=== PATIENT | male | born 1960 | race Two or more races ===

== ENCOUNTER 2018-11-02 07:01 | Inpatient (IN) | payer OTHER, MEDICAID ==
--- NOTE | 2018-11-02 07:08 | EDPHY ---
H & P Time Seen by Provider: 11/02/18 07:01 Constitutional: Initial Vital Signs Heart Rate 54 L 11/02/18 07:09 Respiratory Rate 16 11/02/18 07:09 Blood Pressure 188/95 H 11/02/18 07:09 O2 Sat (%) 98 11/02/18 07:09 O2 Delivery Mode Room Air Allergies/Adverse Reactions: No Known Allergies Allergy (Verified 11/02/18 07:52) Home Medications: Medication Instructions Recorded Acetaminophen [Tylenol 325mg (*)] 650 mg PO Q4H PRN 11/02/18 Aspirin [Aspirin 81mg (*)] 81 mg PO DAILY 11/02/18 Atorvastatin Calcium [Lipitor 40 40 mg PO DAILY 11/02/18 mg (*)] Famotidine [Pepcid 20 MG (*)] 20 mg PO DAILY 11/02/18 Herbals/Supplements -Info Only 1 ea PO DAILY 11/02/18 Insulin Detemir [Levemir] 10 unit SQ HS 11/02/18 Insulin Lispro [HumaLOG LISPRO] 4 unit SC TIDMEAL 11/02/18 Labetalol HCl [Trandate 100 mg (*)] 100 mg PO TID 11/02/18 Levothyroxine [Synthroid 137 mcg 137 mcg PO DAILY06 11/02/18 (*)] Lisinopril [Zestril 40 mg (*)] 40 mg PO DAILY 11/02/18 Metoclopramide [Reglan 5 mg (*)] 5 mg PO BID 11/02/18 Multivitamins [Multivitamin (*)] 1 each PO DAILY 11/02/18 Ondansetron HCl [Zofran] 4 mg PO Q6H PRN 11/02/18 Sennosides [Senna Lax] 8.6 mg PO DAILY PRN 11/02/18 Sertraline HCl [Zoloft 25mg (*)] 25 mg PO DAILY 11/02/18 Sevelamer Carbonate [Renvela] 0.8 gm PO TIDMEAL 11/02/18 hydrALAZINE [Apresoline] 25 mg PO BID 11/02/18 Medical Decision Making - Diagnostics Imaging: Discussed imaging studies w/ freight caller Radiologist, I viewed and interpreted images myself ED Course/Re-evaluation: CHIEF COMPLAINT: Hypoglycemia, AMS, muscle rigidity HISTORY OF PRESENT ILLNESS: This is a 58 y/o male with end-stage renal disease and history of recent finger amputations who arrives via EMS from [facility] for evaluation of hypoglycemia and decreased mental status. Per EMS, last night staff found him curled up on the ground, clamped down, cool, and diaphoretic with a BGL around 50-60. Staff reported he is normally hyperglycemic around 300 and A&Ox2-3, but since starting antibiotics for his recent left finger amputations his sugars have been brittle. This morning staff administered glucagon and milkshakes to treat his BGL and EMS measured it at 116 upon their arrival. EMS describes muscle rigidity in his arms and hands en route. No history obtainable from patient. REVIEW OF SYSTEMS: Unobtainable PHYSICAL EXAM: HR, BP, O2 Sat, RR. Temp noted General Appearance: Alert, not oriented, cachectic. Head: Atraumatic without scalp tenderness or obvious injury Eyes: Pupils equal, round, reactive to light and accommodation, EOMI, no trauma , no injection. Nose: Atraumatic, no rhinorrhea, clear. Throat: Mucus membranes moist. Neck: Supple, non-tender, no lymphadenopathy. Respiratory: No retractions, no distress, no wheezes, and no accessory muscle use. Lungs are clear to auscultation bilaterally. Cardiovascular: Regular rate and rhythm, no murmurs, rubs, or gallops. Good capillary refill all extremities. Gastrointestinal: Abdomen is soft, non-tender, non-distended, no masses, no rebound, no guarding, no peritoneal signs. Musculoskeletal: Atraumatic. Neurological: Alert, not oriented or interactive. Movement in all extremities. Rigidity in wrists. Skin: No rashes, good turgor, no nodules on palpation. PAST MEDICAL HISTORY: End-stage renal disease PAST SURGICAL HISTORY: Finger amputations SOCIAL HISTORY: Lives at [facility]. Disabled. DIFFERENTIAL DIAGNOSIS: The differential diagnosis for the patient's altered mental status included but was not limited to hypoglycemia, infectious process, electrolyte abnormality, head injury, neurologic process, anemia, cardiac process, and intoxicants. MEDICAL DECISION MAKING: This is a 58 y/o male with a history of end-stage renal disease who presents with altered mentation and mehhm-ruha-xfuyrt blood sugar per staff report to EMS. EMS BGL was 116 and he has been stable for them. He is unable to answer any questions and [facility] staff reports this is worse than his baseline. Plan for IV, labs, and admission. Spoke with hospitalist. Dr. Amador accepts admission. ISTAT: BGL 116, Creatinine 6.2. 1005: Patient's temp is now 36.3C and his mental status has improved. I've reviewed all his labs and tests and no further workup is indicated in the ED. - Data Points Laboratory Results: Laboratory Results 11/02/18 07:00 11/02/18 07:00 11/02/18 11/02/18 11/02/18 07:00 07:00 07:00 WBC 9.62 10^3/uL H 10^3/uL (3.80-9.50) RBC 4.49 10^6/uL 10^6/uL (4.40-6.38) Hgb 13.4 g/dL L g/dL (13.7-17.5) Hct 41.0 % % (40.0-51.0) MCV 91.3 fL fL (81.5-99.8) MCH 29.8 pg pg (27.9-34.1) MCHC 32.7 g/dL g/dL (32.4-36.7) RDW 12.9 % % (11.5-15.2) Plt Count 223 10^3/uL 10^3/uL (150-400) MPV 9.1 fL fL (8.7-11.7) Neut % (Auto) 81.0 % H % (39.3-74.2) Lymph % (Auto) 10.5 % L % (15.0-45.0) [place]born % (Auto) 6.9 % % (4.5-13.0) Eos % (Auto) 0.9 % % (0.6-7.6) Baso % (Auto) 0.4 % % (0.3-1.7) Nucleat RBC Rel Count 0.0 % % (0.0-0.2) Absolute Neuts (auto) 7.79 10^3/uL H 10^3/uL (1.70-6.50) Absolute Lymphs (auto) 1.01 10^3/uL 10^3/uL (1.00-3.00) Absolute Monos (auto) 0.66 10^3/uL 10^3/uL (0.30-0.80) Absolute Eos (auto) 0.09 10^3/uL 10^3/uL (0.03-0.40) Absolute Basos (auto) 0.04 10^3/uL 10^3/uL (0.02-0.10) Absolute Nucleated RBC 0.00 10^3/uL 10^3/uL (0-0.01) Immature Gran % 0.3 % % (0.0-1.1) Immature Gran # 0.03 10^3/uL 10^3/uL (0.00-0.10) Sodium 139 mEq/L mEq/L (135-145) Potassium 4.9 mEq/L mEq/L (3.5-5.2) Chloride 96 mEq/L L mEq/L (97-110) Carbon Dioxide 28 mEq/l mEq/l (22-31) Anion Gap 15 mEq/L H mEq/L (6-14) BUN 46 mg/dL H mg/dL (7-23) Creatinine 6.3 mg/dL H mg/dL (0.7-1.3) Estimated GFR 9 Glucose 113 mg/dL H mg/dL (70-100) Hemoglobin A1c Pending Estim Average Glucose Pending Calcium 8.7 mg/dL mg/dL (8.5-10.4) Total Bilirubin 0.5 mg/dL mg/dL (0.1-1.4) Conjugated Bilirubin 0.5 mg/dL mg/dL (0.0-0.5) Unconjugated Bilirubin 0.0 mg/dL mg/dL (0.0-1.1) AST 25 IU/L IU/L (17-59) ALT 33 IU/L IU/L (21-72) Alkaline Phosphatase 112 IU/L IU/L (38-126) Total Protein 7.1 g/dL g/dL (6.3-8.2) Albumin 4.0 g/dL g/dL (3.5-5.0) Lipase 101 IU/L IU/L (23-300) Departure - Departure Disposition: [facility] Inpatient Acute Clinical Impression: Renal disease Altered mental status Qualifiers: Altered mental status type: unspecified Qualified Code(s): R41.82 - Altered mental status, unspecified Condition: Fair Report Scribed for: Jim Beverly Report Scribed by: Susannah Graf Date of Report: 11/02/18 Time of Report: 07:09
[2018-11-02 07:37] LABS: PLATELET COUNT 223 10^3/uL (150-400)
[2018-11-02] MEDS ORDERED: ONDANSETRON DISINTEGRATING 4 MG TAB PO PRN (07:43)
[2018-11-02] MEDS ORDERED: ACETAMINOPHEN 325 MG TAB PO PRN (07:43)
[2018-11-02] MEDS ORDERED: D50W 25 GM/50 ML SYR IVP PRN (07:45)
[2018-11-02] MEDS ORDERED: NS 1,000 ML IV SCH (08:00)
--- NOTE | 2018-11-02 08:35 | HOSPPROG ---
Hospitalist Progress Note Assessment/Plan: In-person automotive parts interpreter bedside Reviewed Meditech: note that there are several encounters under his name, so must look up for prior admissions #Acute metabolic encephalopathy on chronic encephalopathy -atrophy on CT, no acute event/ h/o subacute ischemic infarcts, likely embolic ( diagnosed 10/12) -suspect due to hypoglycemia. Query infection with hypothermia. -normotensive. Echo 10/12 with EF 62%, no VHD -Telemetry #Hypoglycemia: resolved. Holding Glargine. Cont SSI #Hypothermia: query infection. Reports diarrhea. Check GI, resp panel. UA, blood cultures pending. Amputation site healing well #Diarrhea: recently on abx, r/o C diff #ESRD: renal consulted #Left 5th finger amputation: 10/05/[address] Villeda #h/o subacute infarcts: ASA, statin, home BP meds #HTN: resume home med #Deconditioning: wheel-chair bound #DVT ppx: SQH #Disp: inpatient admission to await infectious evaluation, telemetry # Direct care time spent: 30 min bedside examining pt and reviewing Meditech (14: 00-14:30) Subjective: recent diarrhea Objective: Vital Signs Temp Pulse Resp BP Pulse Ox 33.3 C L 57 L 14 188/95 H 97 11/02/18 07:57 11/02/18 07:57 11/02/18 07:57 11/02/18 07:09 11/02/18 07:57 - Time Spent With Patient Time Spent with Patient: greater than 35 minutes Time Spent with Patient: Greater than 35 minutes spent on this patients care, greater than 50% of time spent counseling, educating, and coordinating care regarding the above mentioned plan. - Physical Exam Constitutional: no apparent distress, other (thin) Eyes: PERRL Ears, Nose, Mouth, Throat: moist mucous membranes Cardiovascular: regular rate and rhythym Respiratory: No expiratory wheeze, No inspiratory crackles Gastrointestinal: normoactive bowel sounds, soft, non-tender abdomen Genitourinary: No zhou in urethra Musculoskeletal: other (left hand 5th finger amputuation site healing. No purulence, redness. Fistula with good thrill) Neurologic: CN II-XII Intact, No facial droop Psychiatric: encephalopathic, other (alert to [place]) ICD10 Worksheet Patient Problems: Problems Problem Status Onset Altered mental status Acute Renal disease Acute
--- NOTE | 2018-11-02 08:48 | GHP ---
DATE OF ADMISSION: 11/02/2018 HISTORY OF PRESENT ILLNESS: The patient is a 58-year-old gentleman with history of diabetes, recent amputations of fingers for osteomyelitis, as well as end-stage renal disease. He was brought in from [facility] for a panoply of uncertain complaints. Apparently, his blood sugars have been uncontr olled there lately. I have reviewed his blood sugars over the last week and I have seen numbers dave een 109 and 300. He also has a depressed level of consciousness, which is apparently unusual for him . When I speak with the patient in Bel[place]ian, the patient is able to acknowledge my presence and answe r a few yes or no questions, but really has not participating. Notably, there was a rectal temperatu re of 33.3. His recent amputation sites are clean, dry, and intact, and he has apparently just finished some anti biotics. There is no discussion of diarrhea; however, the patient is not answering questions well en ough to eliminate this from potential. Reviewing his medication list, there are no obvious culprit medications that could cause obtundation. He does take a little bit of Reglan. REVIEW OF SYSTEMS: Complete 10-point review of systems conducted really not that fruitful given his current mental status., PAST MEDICAL HISTORY: Osteomyelitis; end-stage renal disease; diabetes, assume poor control; hypothy roidism, history of gastrostomy; anemia; hypertension; encephalopathy; nontraumatic intracranial hemo rrhage at some point in the past; chronic hypoxemic respiratory failure. SOCIAL HISTORY: Currently living at [facility]. No tobacco. No alcohol recently. FAMILY HISTORY: Reviewed and unremarkable. ALLERGIES: No known drug allergies. HOME MEDICATIONS: Aspirin, atorvastatin, famotidine, detemir insulin 10 h.s., levothyroxine, lisinop ril, multivitamin, Susy-Gilberto, sertraline, hydralazine, metoclopramide, labetalol, lispro, Renvela, Ty lenol. PHYSICAL EXAM: VITAL SIGNS: He is hypothermic at 33, pulse 54, breathing 16 times a minute, 98% on room air. Blood pressure elevated at 188/95. GENERAL: Chronically ill appearing in no acute distre ss, not really participating in the interview. HEENT: Oropharynx clear. Mucous membranes dry. NEC K: Supple. No lymphadenopathy or JVD. LUNGS: Clear to auscultation bilaterally. HEART: S1, S2. ABDOMEN: Soft, nontender, nondistended. Bowel sounds are hypoactive. EXTREMITIES: Lower extremit ies are without edema. He has some evidence of old also pressure ulcers on his thighs that are not a ctive and are healed. His fingers where he has had amputations on his left hand are without purulenc e, drainage, or odor, and they are healing reasonably well. I have discussed the case with Dr. Jim Beverly. LABORATORY DATA: Rkpxw-ff-bwna sodium 136, vklsn-gg-xoyc potassium 4.2, tkcwb-va-pvnt chloride 100, BUN and creatinine are 40 and 6.2, glucose 117. Hemoglobin 42. Other studies are pending at this ti me. ASSESSMENT/PLAN: 58-year-old gentleman presents with toxic metabolic encephalopathy from [facility]. 1. Encephalopathy. This remains a bit of an open book. This patient's baseline remains uncertain, as there is some debate. EMS suggesting that perhaps he is not that oriented. Will scan his head gi flip his aspirin therapy and elevated blood pressure. He is not due for dialysis. He is not uremic. We will check blood cultures, check a chest x-ray, LFTs, lipase. The patient's vitals do not suppor t a diagnosis of sepsis. It is not clear that he makes urine. If he does, we consented for urine cu ltures. 2. End-stage renal disease. I discussed with Renal. He is due for dialysis tomorrow. Can wait unt il then. 3. Recent osteomyelitis. At this point in time, I will hold off on plain films of the area. This a ppears to be relatively well healed. 4. Medications. The patient has a pretty clean list of medicines. I would probably hold metoclopra mide in him unless we discover that he has a history of gastroparesis, which he is certainly at risk for. 5. Hypothermia. We will do warm blankets, and perhaps, a Jose Hugger. 6. Volume status. The patient actually appears a bit volume deplete for me. I will give him a lite r of intravenous fluids and follow his response. 7. Prophylaxis . Subcutaneous heparin. DISPOSITION: Inpatient status. /[id number]/MODL
[2018-11-02] MEDS: INSULIN LISPRO 100 UNIT/ML SC SCH ×3 (10:35→18:10)
--- NOTE | 2018-11-02 12:28 | ASMTCMCOM ---
CM Note CM Note Notes: Pt presented to the ED via EMS for hypoglycemia, AMS, muscle rigidity and hypothermia. Pt coming from [facility] ([phone]). Pt reportedly was found on the floor next to his bed. Pt is SSO and has lived at [facility] since 01/2017. Pt admitted for AMS, encephelopathy and poorly managed BGLs. Pt has ESRD and is scheduled to receive HD tomorrow. Pt recently had left 4th and 5th fingers amputated due to osteomyelitis (08/06 & 09/09/18); surgical wounds appear well healed. Pt has extensive other PMH, see H&P. Pt recently admitted on 10/10 after coming in as a Stroke Alert; during that admission there was a Palliative Care consult ordered on 10/14 but pt d/c'd 10/15 before it was completed. Pt was readmitted on 10/17 and per PC Note 10/20/18, family did not want to discuss goals of care and pt declined PC referral at that time. Spoke w/Deborah at and she states they have had several conversations with pt and his family re:Palliative Care options but family and pt have not enrolled as of yet. Pt's brother, Jayson is MDPOA. Pt has various other supportive family members including his , Munira, and daughter, Colette. Consider another Palliative Care consult. PLAN: Anticipate pt to stabilize and return to [facility]. CM to follow. Date Signed: 11/02/2018 12:28 PM Electronically Signed By:Francesca Tabares RN
--- NOTE | 2018-11-02 12:30 | ASMTLACE ---
ZANE Acuity / Level of Answers: Yes Care: Did the patient have an inpatient admission? Comorbidities - select Answers: Cerebrovascular disease all that apply (CVA, TIA, aneurysms, vasc ular dementia) Chronic pulmonary disease Diabetes (uncontrolled or controlled) History of falls Moderate or severe liver or renal disease Peripheral vascular disease Other Notes: Chronic hypoxemic resp failure, Hx of nontraumatic intracrani al hemorrhage, ESRD (on HD), Hx of osteomyeliti s and finger amputations, hypothyroi dis m, HTN, encephalopthy, hx of gastrostomy, anemia # of Emergency department Answers: 5-8 visits in the last 6 months Score: 20 Date Signed: 11/02/2018 12:29 PM Electronically Signed By:Francesca Tabares RN
[2018-11-02] MEDS: HEPARIN 5,000 UNIT/0.5 ML INJ SC SCH ×2 (14:09→22:08)
[2018-11-02] MEDS ORDERED: SENNOSIDES 1 TAB PO PRN (15:26)
--- NOTE | 2018-11-02 15:46 | PDMN ---
Medical Necessity Medical necessity: [facility] [place] [facility] Systemic or Infectious Condition GR yo presents w/ encephalopathy unknown etiology w/ depressed LOC which is unusual for pt, suspect due to hypoglycemia, query infection w/ hypothermia. Rectal temp 33.3C on admit. Pt is hypertensive 188/95. WBC elevated. BC pending. Tele monitoring ordered. PT ordered. Admit to IP status, meets IP criteria for AMS , temp <35C. HX Pt is on hemodialysis, hx subacute ischemic infacts 10/12, hypothyroidism, HTN, encephalopathy, nontraumatic intracranial hemorrhage, chronic hypoxemic resp failure, currently living at [facility].
[2018-11-02] MEDS: LABETALOL HCL 100 MG TAB PO SCH ×2 (17:10→22:10)
[2018-11-02] MEDS: SEVELAMER HCL 800 MG TAB PO SCH (17:10)
[2018-11-02] MEDS ORDERED: INSULIN GLARGINE 100 UNITS/ML UNIT SC SCH (21:00)
[2018-11-02] MEDS: hydrALAZINE 25 MG TAB PO SCH (22:10)
[2018-11-03] MEDS: METOCLOPRAMIDE 5 MG TAB PO SCH ×3 (00:32→23:04)
[2018-11-03] MEDS: LEVOTHYROXINE 137 MCG TAB PO SCH (05:40)
[2018-11-03] MEDS: HEPARIN 5,000 UNIT/0.5 ML INJ SC SCH ×3 (05:40→23:05)
[2018-11-03] MEDS ORDERED: FAMOTIDINE 20 MG TAB PO SCH ×2 (09:00→21:00)
[2018-11-03] MEDS: ONDANSETRON 4 MG/2 ML VIAL IVP PRN ×2 (09:26→13:40)
[2018-11-03] MEDS: INSULIN LISPRO 100 UNIT/ML SC SCH ×3 (09:26→19:31)
--- NOTE | 2018-11-03 10:42 | SOAPPROG ---
SOAP Progress Note Assessment/Plan: Assessment: 1. esrd: hd today on typical mwf schedule. Vol status looks good, lytes stable. Avf looks ok. 2. AMS: b/l unclear to me but appears this may not be new issue. 3. htn: cont meds. Plan: 11/03/18 10:41 Subjective: Esrd, dialyzes mwf at [facility]. Admitted with AMS from snf, though b/l is unclear to me. Currently awake but minimally conversant, even in Polish. Denies c/o. For hd later today. Objective: Vital Signs Temp Pulse Resp BP Pulse Ox 36.9 C 73 18 184/87 H 100 11/03/18 08:00 11/03/18 08:00 11/03/18 08:00 11/03/18 08:00 11/03/18 08:00 Microbiology 11/03/18 01:49 Gastrointestinal Tract Panel (PCR) - Final Stool Clostridium Difficile Detected 11/02/18 17:00 Respiratory Panel (PCR) - Final Nasal, Sinus - Anaerobic Tube/Swab No Organism Detected By Pcr 11/02/18 11/03/18 11/04/18 05:59 05:59 05:59 Intake Total 1450 Output Total 300 Balance 1150 Physical Exam - Physical Exam General Appearance: no apparent distress, other (frail) Respiratory: lungs clear (anteriorly) Cardiac/Chest: regular rate, rhythm Abdomen: soft Extremities: swelling (no LE/dependent edema), other (+patent LUE avf) ICD10 Worksheet Patient Problems: Problems Problem Status Onset Altered mental status Acute Renal disease Acute
[2018-11-03] MEDS: SEVELAMER HCL 800 MG TAB PO SCH ×3 (11:02→18:02)
[2018-11-03] MEDS: MULTIVITAMINS 1 EACH TAB PO SCH (11:03)
[2018-11-03] MEDS: LISINOPRIL 40 MG TAB PO SCH (11:03)
[2018-11-03] MEDS: SERTRALINE HCL 25 MG TAB PO SCH (11:03)
[2018-11-03] MEDS: ASPIRIN 81 MG CHEWABLE TAB PO SCH (11:03)
[2018-11-03] MEDS: LABETALOL HCL 100 MG TAB PO SCH ×3 (11:03→23:03)
[2018-11-03] MEDS: hydrALAZINE 25 MG TAB PO SCH ×2 (11:04→23:04)
[2018-11-03] MEDS: ATORVASTATIN CALCIUM 40 MG TAB PO SCH (11:04)
[2018-11-03] MEDS ORDERED: hydrALAZINE 20 MG/ML VIAL IVP PRN (11:46)
--- NOTE | 2018-11-03 17:44 | HOSPPROG ---
Hospitalist Progress Note Assessment/Plan: Encephalopathy- may be secondary to C diff colitis although this has been extensively worked up on his previous visit and appears to be his baseline. CT head showed only atrophy and nothing acute. He has a history of CVA in 10/12. no evidence of infection, and likely medications not contributing. nurses who are familiar with him actually think he is mentally more clear today than during previous admissions. Will treat C diff, monitor on telemetry, monitor blood glucose, and labs for any other abnormality that might explain his presentation. Cdiff- patient presented with diarrhea and C diff testing positive. started on PO vancomycin 125 PO QID. diabetes mellitus- holding home lantus due to hypoglycemia on admission. Cover with SSI for now. Hypothermia likely secondary to hypoglycemia, resolved at this point. ESRD- renal consulted, adn dialyzed today Left 5th finger amputation: 10/05/[address] Villeda, appears well healed h/o subacute infarcts: ASA, statin, home BP meds HTN: resume home med, added PRN hydralazine Deconditioning: wheel-chair bound DVT ppx: SQH Disp: inpatient admission to await infectious evaluation, telemetry Direct care time spent: 30 min bedside examining pt and reviewing Meditech Objective: Vital Signs Temp Pulse Resp BP Pulse Ox 36.7 C 66 18 161/78 H 100 11/03/18 11:27 11/03/18 16:00 11/03/18 16:00 11/03/18 16:00 11/03/18 16:00 Microbiology 11/03/18 01:49 Gastrointestinal Tract Panel (PCR) - Final Stool Clostridium Difficile Detected 11/02/18 17:00 Respiratory Panel (PCR) - Final Nasal, Sinus - Anaerobic Tube/Swab No Organism Detected By Pcr 11/02/18 11/03/18 11/04/18 05:59 05:59 05:59 Intake Total 1450 Output Total 300 Balance 1150 - Physical Exam Constitutional: no apparent distress, appears nourished, not in pain Eyes: PERRL, anicteric sclera, EOMI Ears, Nose, Mouth, Throat: moist mucous membranes, hearing normal, ears appear normal, no oral mucosal ulcers Cardiovascular: regular rate and rhythym, no murmur, rub, or gallop Respiratory: no respiratory distress, no rales or rhonchi, clear to auscultation Gastrointestinal: normoactive bowel sounds, soft, non-tender abdomen, no palpable masses Genitourinary: no bladder fullness, no bladder tenderness, no renal bruits Skin: no rashes or abrasions, no fluctuance, no induration Musculoskeletal: generalized weakness Neurologic: other (oriented to person, and month, knew he was in the hospital and [place], but no [place]. No focal deficits. ) Psychiatric: encephalopathic Lymph, Heme, Immunologic: no cervical LAD, no supraclavicular LAD ICD10 Worksheet Patient Problems: Problems Problem Status Onset Altered mental status Acute Renal disease Acute
[2018-11-03] MEDS: VANCOMYCIN 125 MG/2.5 ML UDL PO SCH ×3 (18:02→23:05)
[2018-11-04] MEDS: LEVOTHYROXINE 137 MCG TAB PO SCH (05:39)
[2018-11-04] MEDS: VANCOMYCIN 125 MG/2.5 ML UDL PO SCH ×4 (05:39→20:58)
[2018-11-04] MEDS: HEPARIN 5,000 UNIT/0.5 ML INJ SC SCH ×3 (05:40→21:01)
[2018-11-04] MEDS: MULTIVITAMINS 1 EACH TAB PO SCH (08:56)
[2018-11-04] MEDS: ATORVASTATIN CALCIUM 40 MG TAB PO SCH (08:56)
[2018-11-04] MEDS: METOCLOPRAMIDE 5 MG TAB PO SCH ×2 (08:57→20:52)
[2018-11-04] MEDS: SEVELAMER HCL 800 MG TAB PO SCH ×3 (08:57→18:20)
[2018-11-04] MEDS: ASPIRIN 81 MG CHEWABLE TAB PO SCH (08:57)
[2018-11-04] MEDS: INSULIN LISPRO 100 UNIT/ML SC SCH ×3 (08:58→18:20)
[2018-11-04] MEDS: SERTRALINE HCL 25 MG TAB PO SCH (08:58)
[2018-11-04 09:43] LABS: PLATELET COUNT 257 10^3/uL (150-400)
[2018-11-04] MEDS: LABETALOL HCL 100 MG TAB PO SCH ×3 (10:48→20:54)
[2018-11-04] MEDS: hydrALAZINE 25 MG TAB PO SCH ×2 (10:48→20:52)
[2018-11-04] MEDS: LISINOPRIL 40 MG TAB PO SCH (10:49)
--- NOTE | 2018-11-04 12:10 | HOSPPROG ---
Hospitalist Progress Note Assessment/Plan: Encephalopathy- may be secondary to C diff colitis although this has been extensively worked up on his previous visit and appears to be his baseline. CT head showed only atrophy and nothing acute. He has a history of CVA in 10/12. Likely medications not contributing. nurses who are familiar with him actually think he is mentally more clear today than during previous admissions. Will treat C diff, monitor on telemetry, monitor blood glucose, and labs for any other abnormality that might explain his presentation. Cdiff- patient presented with diarrhea and C diff testing positive. started on PO vancomycin 125 PO QID. diabetes mellitus- holding home lantus due to hypoglycemia on admission. Cover with SSI for now. Hypothermia likely secondary to hypoglycemia, resolved at this point. ESRD- renal consulted, dialysis MWF. last dialyzed on Saturday 11/03 Left 5th finger amputation: 10/05/[address] Villeda, appears well healed h/o subacute infarcts: ASA, statin, home BP meds HTN: resume home med, added PRN hydralazine Deconditioning: wheel-chair bound DVT ppx: SQH Fluids- patient basically not taking any PO, Will start IV saline Lytes- WNl Nutrition- regular. Cor- Full Dispo- inpatient for Cdiff, encephalopathy greater than 35 minutes spent on direct care with over half spent on direct patient care. Objective: Vital Signs Temp Pulse Resp BP Pulse Ox 37.1 C 75 22 H 104/54 L 93 11/04/18 07:34 11/04/18 07:34 11/04/18 07:34 11/04/18 07:34 11/04/18 07:34 Microbiology 11/03/18 01:49 Gastrointestinal Tract Panel (PCR) - Final Stool Clostridium Difficile Detected Laboratory Results 11/04/18 09:05 11/04/18 09:05 11/03/18 11/04/18 11/05/18 05:59 05:59 05:59 Intake Total 1450 675 Output Total 300 Balance 1150 675 - Physical Exam Constitutional: no apparent distress, appears nourished, not in pain Eyes: PERRL, anicteric sclera, EOMI Ears, Nose, Mouth, Throat: moist mucous membranes, hearing normal, ears appear normal, no oral mucosal ulcers Cardiovascular: regular rate and rhythym, no murmur, rub, or gallop Respiratory: no respiratory distress, no rales or rhonchi, clear to auscultation Gastrointestinal: normoactive bowel sounds, soft, non-tender abdomen, no palpable masses Genitourinary: no bladder fullness, no bladder tenderness, no renal bruits Skin: no rashes or abrasions, no fluctuance, no induration Musculoskeletal: generalized weakness Neurologic: other (oriented to self and month, but not year. answers questions appropriately) ICD10 Worksheet Patient Problems: Problems Problem Status Onset Altered mental status Acute Renal disease Acute
[2018-11-04] MEDS: NS 1,000 ML IV SCH (12:30)
--- NOTE | 2018-11-04 12:39 | SOAPPROG ---
MARILU Progress Note Assessment/Plan: Assessment: ESRD on TIW HD c-diff colitis confusion, better today, will answer questions fall at home (Rianna Lopez) Plan: encouraged nutrition help when he needs to get up HD tomorrow continue therapies 11/04/18 12:36 Subjective: denies cp sob nausea or vomiting doesn't remember having dialysis yesterday still feels weak denies diarrhea Objective: Vital Signs Temp Pulse Resp BP Pulse Ox 37.1 C 75 22 H 104/54 L 93 11/04/18 07:34 11/04/18 07:34 11/04/18 07:34 11/04/18 07:34 11/04/18 07:34 Microbiology 11/03/18 01:49 Gastrointestinal Tract Panel (PCR) - Final Stool Clostridium Difficile Detected Laboratory Results 11/04/18 09:05 11/04/18 09:05 11/03/18 11/04/18 11/05/18 05:59 05:59 05:59 Intake Total 1450 675 Output Total 300 Balance 1150 675 Physical Exam - Physical Exam General Appearance: other (awake, will answer a few questions) Neck: normal inspection Respiratory: No rales, No rhonchi, No wheezing Cardiac/Chest: regular rate, rhythm, systolic murmur, No edema Abdomen: normal bowel sounds, non-tender, soft Extremities: other (AVF LUE good bruit and thrill), No swelling Neuro/Psych: alert, other (answers a few questions appropriately, then didn't answer any more questions) ICD10 Worksheet Patient Problems: Problems Problem Status Onset Altered mental status Acute Renal disease Acute
[2018-11-05] MEDS: NS 1,000 ML IV SCH (00:45)
[2018-11-05 01:13] LABS: PLATELET COUNT 225 10^3/uL (150-400)
[2018-11-05] MEDS: LEVOTHYROXINE 137 MCG TAB PO SCH (05:00)
[2018-11-05] MEDS: VANCOMYCIN 125 MG/2.5 ML UDL PO SCH ×2 (05:00→11:59)
[2018-11-05] MEDS: HEPARIN 5,000 UNIT/0.5 ML INJ SC SCH ×2 (05:01→12:59)
[2018-11-05] MEDS: INSULIN LISPRO 100 UNIT/ML SC SCH ×2 (07:32→11:59)
[2018-11-05] MEDS: SEVELAMER HCL 800 MG TAB PO SCH ×2 (08:25→11:59)
[2018-11-05] MEDS: METOCLOPRAMIDE 5 MG TAB PO SCH (08:25)
[2018-11-05] MEDS: SERTRALINE HCL 25 MG TAB PO SCH (10:56)
[2018-11-05] MEDS: ATORVASTATIN CALCIUM 40 MG TAB PO SCH (10:56)
[2018-11-05] MEDS: ASPIRIN 81 MG CHEWABLE TAB PO SCH (10:56)
[2018-11-05] MEDS: MULTIVITAMINS 1 EACH TAB PO SCH (10:57)
[2018-11-05 11:49] VITALS: BP 147/68
[2018-11-05] MEDS: hydrALAZINE 25 MG TAB PO SCH (11:49)
[2018-11-05] MEDS: LABETALOL HCL 100 MG TAB PO SCH (12:03)
[2018-11-05] MEDS: LISINOPRIL 40 MG TAB PO SCH (12:04)
--- NOTE | 2018-11-05 12:32 | PDIAF ---
- Diagnosis Code Status: Full Code - Medication Management Discharge Medications: electronically signed and located in the Home Medication List. - Orders Services needed: Occupational Therapy Isolation Type: CDIFF Isolation, Contact Isolation Diet Recommendation: other (renal diet) Diet Texture: Regular Texture Diet Additional Instructions: activity as tolerated. take vancomycin for 7 days to complete ten day course. See primary care physician for follow up within 5 days of discharge. continue dialysis at regularly scheduled intervals. - Labs/Radiology BMP Date: 11/07/18 - Follow Up Care Current Providers and Referrals: Patient,NotPresent [Unknown] - As per Instructions
--- NOTE | 2018-11-05 12:36 | HOSPPROG ---
Hospitalist Progress Note Assessment/Plan: Encephalopathy- back to baseline apparently. Brother at bedside who thinks he is about at his baseline. Cdiff- patient presented with diarrhea and C diff testing positive. started on PO vancomycin 125 PO QID now on day 02/01 diabetes mellitus- holding home lantus due to hypoglycemia on admission. Cover with SSI for now. Hypothermia likely secondary to hypoglycemia, resolved at this point. ESRD- renal consulted, dialysis MWF. last dialyzed on Saturday 11/03 Left 5th finger amputation: 10/05/[address] Villeda, appears well healed h/o subacute infarcts: ASA, statin, home BP meds HTN: resume home med, added PRN hydralazine Deconditioning: wheel-chair bound DVT ppx: SQH Fluids- patient basically not taking any PO, Will start IV saline Lytes- WNl Nutrition- regular. Cor- Full Dispo- stable to [facility]. greater than 35 minutes spent on direct care with over half spent on direct patient care. Subjective: patient with no complaints, no pain, no longer with nausea and vomiting. no diarrhea. Objective: Vital Signs Temp Pulse Resp BP Pulse Ox 37.1 C 71 16 147/68 H 92 11/05/18 11:46 11/05/18 11:46 11/05/18 11:46 11/05/18 11:49 11/05/18 11:46 Laboratory Results 11/05/18 00:30 11/05/18 05:44 11/04/18 11/05/18 11/06/18 05:59 05:59 05:59 Intake Total 675 920 887 Balance 675 920 887 - Time Spent With Patient Time Spent with Patient: greater than 35 minutes Time Spent with Patient: Greater than 35 minutes spent on this patients care, greater than 50% of time spent counseling, educating, and coordinating care regarding the above mentioned plan. - Physical Exam Constitutional: no apparent distress, appears nourished, not in pain Eyes: PERRL, anicteric sclera, EOMI Ears, Nose, Mouth, Throat: moist mucous membranes, hearing normal, ears appear normal, no oral mucosal ulcers Cardiovascular: regular rate and rhythym, no murmur, rub, or gallop Respiratory: no respiratory distress, no rales or rhonchi, clear to auscultation Gastrointestinal: normoactive bowel sounds, soft, non-tender abdomen, no palpable masses Genitourinary: no bladder fullness, no bladder tenderness, no renal bruits Skin: no rashes or abrasions, no fluctuance, no induration Musculoskeletal: full muscle strength (oriented to self. answers questions appropriately), no muscle tenderness, normal joint ROM Psychiatric: interacting appropriately, not anxious, not encephalopathic, thought process linear ICD10 Worksheet Patient Problems: Problems Problem Status Onset Altered mental status Acute Renal disease Acute
--- NOTE | 2018-11-05 12:42 | SOAPPROG ---
MARILU Progress Note Assessment/Plan: Assessment: ESRD on TIW HD, tolerated HD today c-diff colitis confusion, better today, still answering questions fall at home (Rianna Lopez) Plan: encouraged nutrition ask for help when he needs to get up HD today went fine continue therapies home later today 11/04/18 12:36 11/05/18 12:40 Subjective: denies pain SOB nausea or vomiting no new complaints Objective: Vital Signs Temp Pulse Resp BP Pulse Ox 37.1 C 71 16 147/68 H 92 11/05/18 11:46 11/05/18 11:46 11/05/18 11:46 11/05/18 11:49 11/05/18 11:46 Laboratory Results 11/05/18 00:30 11/05/18 05:44 11/04/18 11/05/18 11/06/18 05:59 05:59 05:59 Intake Total 675 920 887 Balance 675 920 887 Physical Exam - Physical Exam General Appearance: alert, thin Neck: normal inspection Respiratory: No rhonchi, No wheezing Cardiac/Chest: regular rate, rhythm, systolic murmur, No edema Abdomen: normal bowel sounds, non-tender, soft Extremities: No swelling Neuro/Psych: alert ICD10 Worksheet Patient Problems: Problems Problem Status Onset Altered mental status Acute Renal disease Acute
--- NOTE | 2018-11-05 13:57 | ASDISCHSUM ---
Discharge Information Plan Status:SNF Medically Cleared to Leave:11/04/2018 Discharge Date:11/04/2018 CM D/C Disposition: ADT D/C Disposition:Detention Facility Projected Discharge Date:11/05/2018 11:00 AM Transportation at D/C: Discharge Delay Reason: Follow-Up Date:11/05/2018 11:00 AM Discharge Slot: Final Diagnosis: Placement Information Referral Type:*Group Home/SNF Referral ID:[id number] Provider Name:Rianna Lopez/[facility] Address 1:[address] Address 2: Fax Number: [facility]:[place] Selection Factors: State:[place] Patient Contact Information Contact Name:KYLE Relationship: Address:[address] [address] [place] City:[phone] Alternate Phone: [facility] Code: Email: Financial Information Financial Class:Medicare Primary Plan Desc:MEDICARE INPATIENT Primary Plan Number:[id number] Secondary Plan Desc:[place] Secondary Plan Number:[id number] Assessment Information LACE LACE Acuity / Level of Answers: Yes Care: Did the patient have an inpatient admission? Comorbidities - select Answers: Cerebrovascular disease all that apply (CVA, TIA, aneurysms, vasc ular dementia) Chronic pulmonary disease Diabetes (uncontrolled or controlled) History of falls Moderate or severe liver or renal disease Peripheral vascular disease Other Notes: Chronic hypoxemic resp failure, Hx of nontraumatic intracrani al hemorrhage, ESRD (on HD), Hx of osteomyeliti s and finger amputations, hypothyroi dis m, HTN, encephalopthy, hx of gastrostomy, anemia # of Emergency department Answers: 5-8 visits in the last 6 months Score: 20 Date Signed: 11/02/2018 12:29 PM Electronically Signed By:Francesca Tabares RN [facility] CM Progress Note CM Note CM Note Notes: Pt presented to the ED via EMS for hypoglycemia, AMS, muscle rigidity and hypothermia. Pt coming from [facility] ([phone]). Pt reportedly was found on the floor next to his bed. Pt is SSO and has lived at [facility] since 01/2017. Pt admitted for AMS, encephelopathy and poorly managed BGLs. Pt has ESRD and is scheduled to receive HD tomorrow. Pt recently had left 4th and 5th fingers amputated due to osteomyelitis (08/06 & 09/09/18); surgical wounds appear well healed. Pt has extensive other PMH, see H&P. Pt recently admitted on 10/10 after coming in as a Stroke Alert; during that admission there was a Palliative Care consult ordered on 10/14 but pt d/c'd 10/15 before it was completed. Pt was readmitted on 10/17 and per PC Note 10/20/18, family did not want to discuss goals of care and pt declined PC referral at that time. Spoke w/Deborah at and she states they have had several conversations with pt and his family re:Palliative Care options but family and pt have not enrolled as of yet. Pt's brother, Jayson is MDPOA. Pt has various other supportive family members including his , Munira, and daughter, Colette. Consider another Palliative Care consult. PLAN: Anticipate pt to stabilize and return to [facility]. CM to follow. Date Signed: 11/02/2018 12:28 PM Electronically Signed By:Francesca Tabares RN Case Management Discharge Plan Note Case Management Discharge Discharge Order Complete? Answers: Yes Patient to Obtain Answers: via Family Medications Transportation Arranged Answers: Family/Friends EMTALA Complete Answers: No Case Management Transport Answers: Yes Form Complete Faxed Final Orders Answers: Yes Agency/Facility Transfer Answers: Yes Report Printed & Faxed to Receiving Agency Family Notified Answers: Yes Discharge Comments Notes: CM spoke to Dr. Nino. Pt is being d/c today back to [facility]. CM spoke to Rodney and they are able to have pt back w/ the knowledge that he has cdiff. Pt is currently on oral vanco. Pt will be put on isolation when he gets back. DC orders sent. INDRA Smith will call to give report. CM arranged for wheelchair transport w/ [facility]. CM left a msg w/ Jayson HECTOR of the d/c. CM available for changes. Plan: [facility] Date Signed: 11/05/2018 01:56 PM Electronically Signed By:JOHANN Diane Intervention Information Intervention Type:*Incorrect Registration Date of Service:11/02/2018 10:38 AM Patient Type:Observation Staff Member:Brianna Morris Hours: Discipline: Severity: Comment:
--- NOTE | 2018-11-05 21:29 | PDDCSUM ---
Discharge Summary Discharge Summary: patient was admitted for concern for encephalopathy. cdiff testing revealed patient was positive for cdiff and he was started on po vancomycin for this. He was thought to be at his baseline mental status and all testing for causes of encephalopathy, outside of c diff, were negative. His mentation remained at about his baseline. On the day of discharge he was visited by his brother, who thought that patient was also at his baseline mentation. He was discharged back to [facility] to complete a 10 day course of PO vancomycin for his C difficile infection.
== END 2018-11-05 14:41 | DRG 371 ==
LOC: OBSVTOIN 07:45 → F3E 10:11
PROVIDERS: ADMIT Internal Medicine; ATTEND Internal Medicine
PROC: 5A1D70Z Performance of Urinary Filtration, Intermittent, Less than 6 Hours Per Day (ICD-10-PCS; principal; 2018-11-03)
DX: A04.72 Enterocolitis due to Clostridium difficile, not specified as recurrent (principal); G93.41 Metabolic encephalopathy; I12.0 Hypertensive chronic kidney disease with stage 5 chronic kidney disease or end stage renal disease; N18.6 End stage renal disease; E11.649 Type 2 diabetes mellitus with hypoglycemia without coma; E03.9 Hypothyroidism, unspecified; R68.0 Hypothermia, not associated with low environmental temperature; Z89.022 Acquired absence of left finger(s)
CPT/HCPCS: 82435-PO; 82565-PO; 82947-PO; 84132-PO; 84295-PO; 84520-PO; 85014-PO; 97162-GP; G8978-GP-CJ; G8979-GP-CJ; G8980-GP-CJ; J1644; J1815; J2405

== ENCOUNTER 2019-01-05 20:40 | Inpatient (IN) | payer OTHER, MEDICAID ==
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
[2019-01-05 21:04] LABS: PLATELET COUNT 253 10^3/uL (150-400)
[2019-01-05] MEDS ORDERED: ACETAMINOPHEN 325 MG TAB PO PRN ×2 (22:40→22:42)
[2019-01-05] MEDS ORDERED: LABETALOL HCL 100 MG TAB PO PRN (22:42)
[2019-01-05] MEDS ORDERED: hydrALAZINE 25 MG TAB PO PRN (22:42)
[2019-01-05] MEDS ORDERED: LISINOPRIL 40 MG TAB PO PRN (22:42)
[2019-01-05] MEDS ORDERED: SENNOSIDES 1 TAB PO PRN (22:42)
[2019-01-05] MEDS ORDERED: D50W 25 GM/50 ML SYR IVP PRN (22:44)
--- NOTE | 2019-01-06 00:14 | GHP ---
[f rep st] HISTORY AND PHYSICAL DATE OF ADMISSION: 01/05/2019 CHIEF COMPLAINT: Suspected encephalopathy. HISTORY OF PRESENT ILLNESS: The patient is a 58-year-old gentleman with a past medical history of en d-stage renal disease on hemodialysis, who has had admissions previously to [facility] with suspected encephalopathy. He does have cerebral atrophy noted on prior brain imaging. He brenda arently was noted to be more confused at [facility] where he currently resides and was sent to the emergency room for additional evaluation. He had a CT scan of the head, which did not show any acut e changes. His serum alcohol level was normal, and his ammonia level was also undetectable. Urea le mel was 38. Patient's ability to provide history is quite limited, so I do not really have good insi ght into the events of today. PAST MEDICAL HISTORY: History of intracranial hemorrhage, history of cerebral atrophy, hypertension, chronic hypoxic respiratory failure, end-stage renal disease on hemodialysis, diabetes mellitus type 2, hypothyroidism, history of osteomyelitis as well. PAST SURGICAL HISTORY: Left 5th finger amputation. MEDICATIONS: Aspirin 81 mg daily. Atorvastatin 40 mg nightly. Pepcid 20 mg daily. Hydralazine 25 mg twice a day. NovoLog FlexPen 4 units subcu a.c. Detemir 8 units nightly. Labetalol 100 mg 3 dustin es a day. Levothyroxine 137 mcg daily. Lisinopril 40 mg daily. Reglan 5 mg twice a day. Zoloft 12 5 mg daily. Sevelamer 800 mg 3 times a day. ALLERGIES: No known drug allergies. FAMILY HISTORY: Unknown. SOCIAL HISTORY: Patient is currently residing at [facility]. He is a nonsmoker. REVIEW OF SYSTEMS: Unable to obtain an adequate review of systems secondary to encephalopathy. PHYSICAL EXAM: VITAL SIGNS: Temperature 37.1, blood pressure 138/80, heart rate 80, respirations 18 , satting 94% on room air. GENERAL: The patient was awake with his eyes opened and did engage eye c ontact but was not conversant. He did seem to attempt to speak in Yi. HEENT: Extraocular move ments appeared intact. No scleral icterus noted. NECK: Supple. No adenopathy or thyroid enlargeme nt appreciated. CHEST: Clear on auscultation with normal respiratory effort. HEART: Regular rate and rhythm. No murmurs. ABDOMEN: Soft, nontender, nondistended. No rebound tenderness. : No F oley catheter in place. EXTREMITIES: No significant pitting edema. Somewhat atrophied lower extrem ities. NEUROLOGIC: Cranial nerves 2 through 12 appear grossly intact. 4/5 strength in extremities. LABS: White blood cell count 8, hemoglobin 11, platelets 253. Sodium 137, potassium 5.0, chloride i s 91, bicarb 31, BUN is 38, creatinine of 4.7, glucose 303, AST 15, ALT 17, alk phos 162, bilirubin i s 0.3. Ammonia level is less than 9.0. Troponin 0.01. Serum alcohol less than 10. IMAGING: Chest x-ray: No acute findings. CT head without contrast: No acute findings. ASSESSMENT AND PLAN: 1. Encephalopathy: Uncertain baseline, but I suspect the patient may be at his baseline at the curr ent time. It would be helpful if there were family or friends available to confirm this prior to ini tiating any additional investigation. For now, considering the negative CT scan of his head and rela tively unremarkable metabolic studies, I will hold off on any further investigation. I do note that he is on Reglan on a scheduled basis twice a day. Considering his renal insufficiency, we may want t o consider holding this medication to make sure there are no adverse reactions coming from this medic ation, which could account for his current presentation, so I have placed this on hold. 2. Hypertension: Home antihypertensives have been continued. 3. Chronic hypoxic respiratory failure: This is taken from old records but appears to be doing fine on room air currently. Monitor closely. 4. End-stage renal disease on hemodialysis: We will need to confirm his scheduled dialysis days. 5. Diabetes mellitus type 2: For now, will hold his long-acting insulin and continue with the slidi ng scale insulin 3 times daily before meals. 6. Hypothyroidism: Continue levothyroxine. 7. Deep venous thrombosis prophylaxis: Heparin. DISPOSITION: I recommend admission under observation status for now. /[id number]/MODL
[2019-01-06] MEDS: HEPARIN 5,000 UNIT/0.5 ML INJ SC SCH ×3 (06:08→21:42)
[2019-01-06] MEDS: LEVOTHYROXINE 137 MCG TAB PO SCH (06:08)
[2019-01-06] MEDS: INSULIN REGULAR HUMAN 100 UNIT/ML UNIT SC SCH ×3 (08:05→18:32)
[2019-01-06] MEDS: SEVELAMER HCL 800 MG TAB PO SCH ×3 (09:51→18:29)
[2019-01-06] MEDS: FAMOTIDINE 20 MG TAB PO SCH (10:45)
[2019-01-06] MEDS: ASPIRIN 81 MG CHEWABLE TAB PO SCH (10:45)
[2019-01-06] MEDS: SERTRALINE HCL 25 MG TAB PO SCH (10:45)
--- NOTE | 2019-01-06 16:40 | ASMTCASEMG ---
Living Arrangements What is your living Answers: With Other (Not Family) arrangement? Who do you live with? Type Of Residence What kind of residence do Answers: Retirement Facility you live in? Type of Residence Facility Name Notes: Patient lives at [facility] Discharge Plan Comments Coordination Status Comments Notes: Patient is a 58yo male with a hx of end stage renal disease on hemodialysis who currently resides at [facility]. Patient is being admitted for encephalopathy, hypertension, chronic hypoxic respiratory failure, end stage renal disease, diabetes type II, hypothyroidism, and deep venous thrombosis. PT has been ordered. Patient will most likely return to [facility]. CM will follow. Date Signed: 01/06/2019 04:40 PM Electronically Signed By:Esha Ward LCSW
--- NOTE | 2019-01-06 17:34 | HOSPPROG ---
Hospitalist Progress Note Assessment/Plan: * Metabolic encephalopathy -still confused but unclear baseline -suspect due to infection given fever * Fever -BC sent -Resp PCR + rhinovirus - suspect this may be cause -dirty urine in HD patient unlikely true UTI -await culture -treat only if fever persists and culture positive * ESRD -d/w Dr. Davis - HD in am * HTN -labetolol, lisinopril * DM II -lantus * h/o ICH with ? vascular dementia -seems to be quite debilitated at baseline Subjective: Denies pain Objective: Vital Signs Temp Pulse Resp BP Pulse Ox 37.3 C 79 16 162/87 H 91 L 01/06/19 16:18 01/06/19 16:18 01/06/19 16:18 01/06/19 16:18 01/06/19 16:18 Microbiology 01/06/19 15:20 Respiratory Panel (PCR) - Final Nasal, Sinus - Anaerobic Tube/Swab Human Rhinovirus/Enterovirus CXR negative Laboratory Tests 01/05/19 01/05/19 01/06/19 21:00 21:02 15:25 WBC 8.35 Hct 37.0 L Plt Count 253 POC Creatinine 4.9 H Urine WBC 50-182 H Urine Bacteria 4+ H - Physical Exam Constitutional: no apparent distress, appears nourished, not in pain Cardiovascular: regular rate and rhythym, no murmur, rub, or gallop Respiratory: no respiratory distress, no rales or rhonchi, clear to auscultation Gastrointestinal: normoactive bowel sounds, soft, non-tender abdomen, no palpable masses Skin: no rashes or abrasions, no fluctuance, no induration Neurologic: No AAOx3 Psychiatric: encephalopathic, poor insight, poor judgement, poor memory, No interacting appropriately, No agitated ICD10 Worksheet Patient Problems: Problems Problem Status Onset Altered mental status Acute Renal disease Acute Hypertensive urgency Acute Abdominal pain Acute Nausea & vomiting Acute History of renal dialysis Acute Renal failure Acute Hyperkalemia Acute Chronic kidney disease Acute DM2 (diabetes mellitus, type 2) Acute Hypoglycemia Acute Hypothermia Acute Pneumonia of right upper lobe due to infectious organism Acute Altered mental status Acute Sepsis Acute Infected hand Acute Hypertensive encephalopathy Acute Hypertensive emergency Acute End stage renal disease on dialysis Acute History of CVA with residual deficit Acute Encephalopathy Acute ESRD on hemodialysis Acute
[2019-01-06] MEDS: ATORVASTATIN CALCIUM 40 MG TAB PO SCH (20:31)
[2019-01-06] MEDS: INSULIN GLARGINE 100 UNITS/ML UNIT SC SCH (20:31)
--- NOTE | 2019-01-06 23:06 | SOAPPROG ---
SOAP Progress Note Assessment/Plan: Assessment: Ron is a patient of Dr. Levi at [facility], where he dialyzes on a MWF schedule. He has limited baseline functional status, and is a resident of [facility]. He has had previous admissions, where he has had additional decline in MS related to infections. Tonight, I am unable to reach [facility], and patient is not communicative, although he appears near baseline, and is likely improved since admission. He apparently cut short his dialysis yesterday, and then there were different reports relating to the circumstances of his admission. At this time, he is afeb, and his labs from last pm are stable. His WBC is ok. It would be reasonable to touch bases with Dr. Levi tomorrow to get an update on his overall status. -I will check a K level tonight -I will arrange for dialysis tomorrow Plan: 01/06/19 23:01 Subjective: Turns to me when I ask. Is watching television. Objective: Vital Signs Temp Pulse Resp BP Pulse Ox 37.3 C 82 18 147/83 H 92 01/06/19 20:00 01/06/19 20:00 01/06/19 20:00 01/06/19 20:00 01/06/19 20:00 Microbiology 01/06/19 15:20 Respiratory Panel (PCR) - Final Nasal, Sinus - Anaerobic Tube/Swab Human Rhinovirus/Enterovirus Physical Exam - Physical Exam General Appearance: no apparent distress Respiratory: lungs clear Cardiac/Chest: regular rate, rhythm Extremities: normal inspection, other (fistula site good with excellent bruit) Neuro/Psych: alert ICD10 Worksheet Patient Problems: Problems Problem Status Onset Abdominal pain Acute Altered mental status Acute Altered mental status Acute Chronic kidney disease Acute DM2 (diabetes mellitus, type 2) Acute ESRD on hemodialysis Acute Encephalopathy Acute End stage renal disease on dialysis Acute History of CVA with residual deficit Acute History of renal dialysis Acute Hyperkalemia Acute Hypertensive emergency Acute Hypertensive encephalopathy Acute Hypertensive urgency Acute Hypoglycemia Acute Hypothermia Acute Infected hand Acute Nausea & vomiting Acute Pneumonia of right upper lobe due to infectious organism Acute Renal disease Acute Renal failure Acute Sepsis Acute
[2019-01-07] MEDS: HEPARIN 5,000 UNIT/0.5 ML INJ SC SCH ×3 (05:27→22:35)
[2019-01-07] MEDS: LEVOTHYROXINE 137 MCG TAB PO SCH (05:27)
--- NOTE | 2019-01-07 08:19 | SOAPPROG ---
SOAP Progress Note Assessment/Plan: Assessment: ESRD on TIW HD dementia institutionalized at [facility] rhinovirus Plan: HD today vol removal as tolerated 01/07/19 08:16 Subjective: not communicative not answering my questions even with lining feller Objective: Vital Signs Temp Pulse Resp BP Pulse Ox 36.8 C 78 16 184/96 H 92 01/07/19 07:17 01/07/19 07:17 01/07/19 07:17 01/07/19 07:17 01/07/19 07:17 Microbiology 01/06/19 15:20 Respiratory Panel (PCR) - Final Nasal, Sinus - Anaerobic Tube/Swab Human Rhinovirus/Enterovirus Laboratory Results 01/06/19 23:15 Physical Exam - Physical Exam General Appearance: no apparent distress, thin Neck: normal inspection Respiratory: No rhonchi, No wheezing Cardiac/Chest: regular rate, rhythm, systolic murmur, No friction rub Abdomen: normal bowel sounds, non-tender Extremities: No pedal edema Neuro/Psych: cognition abnormalities ICD10 Worksheet Patient Problems: Problems Problem Status Onset Abdominal pain Acute Altered mental status Acute Altered mental status Acute Chronic kidney disease Acute DM2 (diabetes mellitus, type 2) Acute ESRD on hemodialysis Acute Encephalopathy Acute End stage renal disease on dialysis Acute History of CVA with residual deficit Acute History of renal dialysis Acute Hyperkalemia Acute Hypertensive emergency Acute Hypertensive encephalopathy Acute Hypertensive urgency Acute Hypoglycemia Acute Hypothermia Acute Infected hand Acute Nausea & vomiting Acute Pneumonia of right upper lobe due to infectious organism Acute Renal disease Acute Renal failure Acute Sepsis Acute
--- NOTE | 2019-01-07 10:21 | PDMN ---
Medical Necessity Medical necessity: MCG MGSIC Systemic or Infectious Condition GR yo w/ increased confusion in setting of ESRD on HD, uncertain etiology, initially OBS for workup. During hospitalization developed fever 38.9, still confused although unclear baseline, +resp PCR for rhinovirus. Pt requires additional MN for ongoing monitoring and tx. Nephrology to consult. Urine and BC pending. Hx IC hemorrhage, cerebral atrophy, HTN, chronic hypoxic resp fx, DMII. Change to IP status 01/06/19@1317 per MD order
[2019-01-07] MEDS: INSULIN REGULAR HUMAN 100 UNIT/ML UNIT SC SCH ×3 (11:08→18:40)
--- NOTE | 2019-01-07 13:10 | HOSPPROG ---
Hospitalist Progress Note Assessment/Plan: # acute on chronic metabolic encephalopathy - not at baseline per brother - baseline is more participative, but needs help with all ADLs including feeding himself at times - likely d/t rhinovirus # hx ICH with likely vascular dementia - lives at [facility], needs significant help with ADLs # rhinovirus - supportive care # fever - likely d/t rhinovirus; BCx NGTD - would not treat pyuria # ESRD - s/p HD today # htn - reasonable control on lisinopril and labetalol # DM2 - lantus Subjective: patient lying in bed, not talking, head covered by his blanket Objective: Vital Signs Temp Pulse Resp BP Pulse Ox 36.4 C 73 16 135/73 H 95 01/07/19 12:26 01/07/19 12:26 01/07/19 12:26 01/07/19 12:26 01/07/19 12:26 Microbiology 01/06/19 15:20 Respiratory Panel (PCR) - Final Nasal, Sinus - Anaerobic Tube/Swab Human Rhinovirus/Enterovirus Laboratory Results 01/06/19 23:15 chart reviewed ECG personally reviewed CXR, CTH reviewed - Physical Exam Constitutional: no apparent distress, other (lying on his side) Cardiovascular: regular rate and rhythym, no murmur, rub, or gallop Respiratory: no respiratory distress, no rales or rhonchi, clear to auscultation Gastrointestinal: normoactive bowel sounds, soft, non-tender abdomen ICD10 Worksheet Patient Problems: Problems Problem Status Onset Altered mental status Acute Renal disease Acute History of kidney disease Acute History of diabetes mellitus Acute Hypertensive urgency Acute Abdominal pain Acute Nausea & vomiting Acute History of renal dialysis Acute Renal failure Acute Hyperkalemia Acute Chronic kidney disease Acute DM2 (diabetes mellitus, type 2) Acute Hypoglycemia Acute Hypothermia Acute Pneumonia of right upper lobe due to infectious organism Acute Altered mental status Acute Sepsis Acute Infected hand Acute Hypertensive encephalopathy Acute Hypertensive emergency Acute End stage renal disease on dialysis Acute History of CVA with residual deficit Acute Encephalopathy Acute ESRD on hemodialysis Acute
[2019-01-07] MEDS: ASPIRIN 81 MG CHEWABLE TAB PO SCH (14:09)
[2019-01-07] MEDS: FAMOTIDINE 20 MG TAB PO SCH (14:09)
[2019-01-07] MEDS: SERTRALINE HCL 25 MG TAB PO SCH (14:10)
[2019-01-07] MEDS: SEVELAMER HCL 800 MG TAB PO SCH ×2 (14:10→18:43)
--- NOTE | 2019-01-07 14:12 | ASMTCMCOM ---
CM Note CM Note Notes: Pt Adm w/ encephelopathy and is a dialysis Pt. He will be returning to [facility] where he resides. Plan: Anticipate Pt will return to [facility] Date Signed: 01/07/2019 02:11 PM Electronically Signed By:Lore Palomares
[2019-01-07] MEDS: INSULIN GLARGINE 100 UNITS/ML UNIT SC SCH (22:35)
[2019-01-07] MEDS: ATORVASTATIN CALCIUM 40 MG TAB PO SCH (22:35)
[2019-01-08] MEDS: HEPARIN 5,000 UNIT/0.5 ML INJ SC SCH ×2 (05:07→15:58)
[2019-01-08] MEDS: LEVOTHYROXINE 137 MCG TAB PO SCH (05:07)
[2019-01-08 08:47] VITALS: BP 153/87
[2019-01-08] MEDS: INSULIN REGULAR HUMAN 100 UNIT/ML UNIT SC SCH ×2 (09:28→12:33)
[2019-01-08] MEDS: SEVELAMER HCL 800 MG TAB PO SCH ×2 (10:23→12:33)
[2019-01-08] MEDS: SERTRALINE HCL 25 MG TAB PO SCH (10:23)
[2019-01-08] MEDS: FAMOTIDINE 20 MG TAB PO SCH (10:23)
[2019-01-08] MEDS: ASPIRIN 81 MG CHEWABLE TAB PO SCH (10:23)
--- NOTE | 2019-01-08 11:53 | PDIAF ---
- Diagnosis Diagnosis: Confusion, UTI, coronavirus Code Status: Full Code - Medication Management Robotics Specialist Antibiotics: levaquin 500mg QOD for 3 doses Discharge Medications: electronically signed and located in the Home Medication List. - Orders Services needed: Registered Nurse, Certified Heavy Equipment Service Technician, Physical Therapy, Occupational Therapy Isolation Type: Droplet Isolation Diet Recommendation: no restrictions on diet - Follow Up Care Current Providers and Referrals: JACK LOPEZ [Primary Care Provider] - As per Instructions
--- NOTE | 2019-01-08 12:16 | GDS ---
[f rep st] DISCHARGE SUMMARY ALL DIAGNOSES: 1. Acute on chronic metabolic encephalopathy. 2. Urinary tract infection due to Klebsiella aerogenes. 3. History of intracerebral hemorrhage with vascular dementia. 4. Rhinovirus infection. 5. Fever. 6. End-stage renal disease. 7. Dialysis. 8. Hypertension. 9. Diabetes mellitus type 2. HOSPITAL COURSE: A 58-year-old man who resides at [facility] who was admitted for worsening menta l status. He is quite dependent at baseline. He had a fever here. Blood cultures have been drawn a nd are no growth to date. Respiratory panel did show human rhinovirus/enterovirus. He had significa nt pyuria on admission and his urine culture grew greater than 100,000 CFUs of Klebsiella aerogenes. He is approaching his baseline in terms of mental status per therapy reports. He has undergone dial ysis since he was here appropriately. His last was the day before discharge on January 07. He has received symptomatic treatment for his viral bronchitis. He will get Levaquin 500 mg every other day for an additional 3 doses for urinary tract infection. He is discharged to [facility]. FOLLOWUP: He will need dialysis again 3 times a week. He will be due next tomorrow. BILLING: I spent more than 30 minutes on the day of discharge coordinating care. /[id number]/MODL
--- NOTE | 2019-01-08 14:11 | ASMTLACE ---
LACE Length of stay for Answers: 2 days current admission Acuity / Level of Answers: Yes Care: Did the patient have an inpatient admission? Comorbidities - select Answers: Cerebrovascular disease all that apply (CVA, TIA, aneurysms, vasc ular dementia) Diabetes (uncontrolled or controlled) Moderate or severe liver or renal disease Other Notes: Hypothyroid; Encephalop ath y; HTN # of Emergency department Answers: 5-8 visits in the last 6 months Score: 16 Date Signed: 01/08/2019 02:10 PM Electronically Signed By:Mag Tyler RN
--- NOTE | 2019-01-08 14:12 | ASMTDCNOTE ---
Case Management Discharge Discharge Order Complete? Answers: Yes Patient to Obtain Answers: Other Notes: [facility] Transportation Arranged Answers: Other Notes: [place] [facility] will Pick (Date 01/08/2019 02:00 PM & Time) Case Management Transport Answers: Yes Form Complete Faxed Final Orders Answers: Yes Agency/Facility Transfer Answers: Yes Report Printed & Faxed to Receiving Agency Family Notified Answers: Yes Discharge Comments Notes: D/silas HOWARD, final orders faxed. Rodney ramirez michelle, RN to call report. Date Signed: 01/08/2019 12:20 PM Electronically Signed By:Mag Tyler RN
--- NOTE | 2019-01-09 12:45 | ASDISCHSUM ---
Discharge Information Plan Status:SNF Medically Cleared to Leave: Discharge Date:01/08/2019 02:01 PM CM D/C Disposition:[facility] Facility ADT D/C Disposition:[facility] Facility Projected Discharge Date:01/08/2019 11:00 AM Transportation at D/C:Wheelchair Van Discharge Delay Reason: Follow-Up Date:01/08/2019 11:00 AM Discharge Slot: Final Diagnosis: Placement Information Referral Type:*Fdc/SNF Referral ID:[id number] Provider Name:Rianna Lopez/[facility] Address 1:[address] Address 2: Fax Number: [facility] Selection Factors: State:[place] Patient Contact Information Contact Name:ARIES Relationship: Address:[address] City:[place] Alternate Phone: [facility]/Zip Code:[place] [address] Email: Financial Information Financial Class:Medicare Primary Plan Desc:MEDICARE INPATIENT Primary Plan Number:[id number] Secondary Plan Desc:[place] Secondary Plan Number:[id number] Assessment Information LACE LACE Length of stay for Answers: 2 days current admission Acuity / Level of Answers: Yes Care: Did the patient have an inpatient admission? Comorbidities - select Answers: Cerebrovascular disease all that apply (CVA, TIA, aneurysms, vasc ular dementia) Diabetes (uncontrolled or controlled) Moderate or severe liver or renal disease Other Notes: Hypothyroid; Encephalop ath y; HTN # of Emergency department Answers: 5-8 visits in the last 6 months Score: 16 Date Signed: 01/08/2019 02:10 PM Electronically Signed By:Mag Tyler RN [facility] Initial CM Assessment Living Arrangements What is your living Answers: With Other (Not Family) arrangement? Who do you live with? Type Of Residence What kind of residence do Answers: [facility] Facility you live in? Type of Residence Facility Name Notes: Patient lives at [facility] Discharge Plan Comments Coordination Status Comments Notes: Patient is a 58yo male with a hx of end stage renal disease on hemodialysis who currently resides at [facility]. Patient is being admitted for encephalopathy, hypertension, chronic hypoxic respiratory failure, end stage renal disease, diabetes type II, hypothyroidism, and deep venous thrombosis. PT has been ordered. Patient will most likely return to [facility]. CM will follow. Date Signed: 01/06/2019 04:40 PM Electronically Signed By:Esha Ward LCSW [facility] CM Progress Note CM Note CM Note Notes: Pt Adm w/ encephelopathy and is a dialysis Pt. He will be returning to [facility] where he resides. Plan: Anticipate Pt will return to [facility] Date Signed: 01/07/2019 02:11 PM Electronically Signed By:Lore Palomares Case Management Discharge Plan Note Case Management Discharge Discharge Order Complete? Answers: Yes Patient to Obtain Answers: Other Notes: [facility] [employer] Transportation Arranged Answers: Other Notes: [employer] will Pick (Date 01/08/2019 02:00 PM & Time) Case Management Transport Answers: Yes Form Complete Faxed Final Orders Answers: Yes Agency/Facility Transfer Answers: Yes Report Printed & Faxed to Receiving Agency Family Notified Answers: Yes Discharge Comments Notes: Tamia HOWARD, final orders faxed. Rodney ramirez notified, RN to call report. Date Signed: 01/08/2019 12:20 PM Electronically Signed By:Mag Tyelr RN Intervention Information
== END 2019-01-08 14:01 | DRG 70 ==
LOC: EDUNIT# → F3E 23:26 → OBSVTOIN 01-06 13:17
PROVIDERS: ADMIT Internal Medicine; ATTEND Internal Medicine
PROC: 5A1D70Z Performance of Urinary Filtration, Intermittent, Less than 6 Hours Per Day (ICD-10-PCS; principal; 2019-01-07)
DX: G93.41 Metabolic encephalopathy (principal); N39.0 Urinary tract infection, site not specified; I12.0 Hypertensive chronic kidney disease with stage 5 chronic kidney disease or end stage renal disease; N18.6 End stage renal disease; J96.11 Chronic respiratory failure with hypoxia; B96.1 Klebsiella pneumoniae [K. pneumoniae] as the cause of diseases classified elsewhere; F01.50 Vascular dementia, unspecified severity, without behavioral disturbance, psychotic disturbance, mood disturbance, and anxiety; B97.89 Other viral agents as the cause of diseases classified elsewhere; E11.9 Type 2 diabetes mellitus without complications; E03.9 Hypothyroidism, unspecified; Z99.2 Dependence on renal dialysis; Z89.022 Acquired absence of left finger(s)
CPT/HCPCS: 82435-PO; 82565-PO; 82947-PO; 84132-PO; 84295-PO; 84484-ER; 84520-PO; 85014-ER; G0378; G0480; J1644; J1815

== ENCOUNTER 2019-02-06 17:25 | Emergency (ER) | payer OTHER, MEDICAID ==
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
[2019-02-06 18:33] LABS: PLATELET COUNT 252 10^3/uL (150-400)
[2019-02-06 20:16] VITALS: BP 121/67
== END 2019-02-06 20:14 | disposition home or self-care (01) ==
LOC: EDUNIT#
DX: R41.82 Altered mental status, unspecified (principal); N18.6 End stage renal disease; I10 Essential (primary) hypertension; E11.9 Type 2 diabetes mellitus without complications; Z99.2 Dependence on renal dialysis; Z79.4 Long term (current) use of insulin

== ENCOUNTER 2019-02-20 17:33 | Emergency (ER) | payer OTHER, MEDICAID ==
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
[2019-02-20 19:08] VITALS: BP 142/76
--- NOTE | 2019-02-20 20:20 | ASDISCHSUM ---
Discharge Information Plan Status:SNF Medically Cleared to Leave: Discharge Date: D/C Disposition:[facility] Facility ADT D/C Disposition:Home, Routine, Self-Care Projected Discharge Date: Transportation at D/C:Wheelchair Van Discharge Delay Reason: Follow-Up Date: Discharge Slot: Final Diagnosis: Placement Information Patient Contact Information Contact Name:ARIES Relationship: Address:[address] City:[place] Alternate Phone: State/Zip Code:[place] [address] Email: Financial Information Financial Class:Medicare Primary Plan Desc:MEDICARE OUTPATIENT Primary Plan Number:[id number] Secondary Plan Desc:MEDICAID [place] Secondary Plan Number:[id number] Assessment Information Intervention Information Intervention Type:Transportation Date of Service:02/20/2019 08:18 PM Patient Type:Emergency Room Staff Member:INDRA Tabares, Francseca Hours:0.25 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 EILEEN spoke w/Jesus Alberto. [facility] to be billed for WC transport.
== END 2019-02-20 20:30 | disposition home or self-care (01) ==
LOC: EDUNIT#
DX: F91.8 Other conduct disorders (principal); N18.6 End stage renal disease; Z99.2 Dependence on renal dialysis
CPT/HCPCS: 82435-PO; 82565-PO; 82947-PO; 84132-PO; 84295-PO; 84520-PO; 85014-ER

== ENCOUNTER 2019-02-27 13:20 | Inpatient (IN) | payer OTHER, MEDICAID ==
--- NOTE | 2019-02-27 13:19 | EDPHY ---
H & P Time Seen by Provider: 02/27/19 13:52 Constitutional: Initial Vital Signs Temperature (C) 39.5 C H 02/27/19 13:24 Heart Rate 90 02/27/19 13:24 Respiratory Rate 18 02/27/19 13:24 Blood Pressure 157/80 H 02/27/19 13:24 O2 Sat (%) 93 02/27/19 13:24 O2 Delivery Mode Nasal Cannula O2 (L/minute) 2 Allergies/Adverse Reactions: No Known Allergies Allergy (Verified 02/27/19 13:23) Home Medications: Medication Instructions Recorded Famotidine [Pepcid 20 MG (*)] 20 mg PO DAILY 08/21/17 Multivitamins [Multivitamin (*)] 1 each PO DAILY 08/21/17 Insulin Detemir [Levemir] 8 unit SQ HS 06/12/18 Atorvastatin Calcium [Lipitor 40 40 mg PO HS 08/05/18 mg (*)] Levothyroxine [Synthroid 137 mcg 137 mcg PO DAILY06 10/10/18 (*)] Aspirin [Aspirin 81mg (*)] 81 mg PO DAILY tab.chew 10/15/18 Acetaminophen [Tylenol 325mg (*)] 650 mg PO Q4H PRN 11/02/18 Herbals/Supplements -Info Only 1 ea PO DAILY 11/02/18 Labetalol HCl [Trandate 100 mg (*)] 100 mg PO TID PRN 11/02/18 Lisinopril [Zestril 40 mg (*)] 40 mg PO DAILY PRN 11/02/18 Metoclopramide [Reglan 5 mg (*)] 5 mg PO BID 11/02/18 Ondansetron HCl [Zofran] 4 mg PO Q6H PRN 11/02/18 Sennosides [Senna Lax] 8.6 mg PO DAILY PRN 11/02/18 Sertraline HCl [Zoloft 25mg (*)] 125 mg PO DAILY 11/02/18 Glucagon HCl [Glucagon] 1 mg SQ ONCE PRN 01/05/19 Insulin Aspart [Novolog Flexpen] 4 unit SQ AC PRN 01/05/19 Sevelamer Carbonate [Renvela] 800 mg PO TIDMEAL 01/05/19 hydrALAZINE [Apresoline] 25 mg PO BID PRN 01/05/19 levOFLOXACIN [levAQUIN (*)] 500 mg PO EVERY OTHER DAY #3 tab 01/08/19 Medical Decision Making - Diagnostics Imaging Results: Imaging Impressions Chest X-Ray 02/27/19 13:22 Impression: Hypoventilated clear lungs. No pneumonia. Imaging: I viewed and interpreted images myself ED Course/Re-evaluation: CHIEF COMPLAINT: Fever and lethargy HISTORY OF PRESENT ILLNESS: This is a 58 y/o male with end-stage renal disease and diabetes who arrives via EMS from dialysis and [facility] for lethargy and fever after dialysis. The patient was at dialysis today when his symptoms were noticed. Due to these symptoms he was transported to the emergency department. The patient is well known to the emergency department. No history obtainable from patient. The patient is not combative today. REVIEW OF SYSTEMS: Unobtainable PHYSICAL EXAM: HR, BP, O2 Sat, RR. Temp noted General Appearance: Alert, well hydrated, and non-toxic appearing. Head: Atraumatic without scalp tenderness or obvious injury Eyes: Pupils equal, round, reactive to light and accommodation, EOMI, no trauma , no injection. Ears: Clear bilaterally, no perforation, normal landmarks Nose: Atraumatic, no rhinorrhea, clear. Throat: There is no erythema or exudates, no lesions, normal tonsils, mucus membranes moist. Neck: Supple, 2+ carotid upstroke, nontender, no lymphadenopathy. Respiratory: No retractions, no distress, no wheezes, and no accessory muscle use. Lungs are clear to auscultation bilaterally. Cardiovascular: Regular rate and rhythm, no murmurs, rubs, or gallops. Bilateral carotid, radial, dorsalis pedis, and posterior tibial pulses intact. Good capillary refill all extremities. Gastrointestinal: Abdomen is soft, nontender, non-distended, no masses, no rebound, no guarding, no peritoneal signs. Musculoskeletal: Normal active ROM of all extremities, atraumatic. Neurological: Alert, non-verbal. The patient has normal DTRs and non-focal cranial nerves, motor, sensory, and cerebellar exam. Skin: No rashes, good turgor, no nodules on palpation. PAST MEDICAL HISTORY: End-stage renal disease, diabetes PAST SURGICAL HISTORY: Finger amputations SOCIAL HISTORY: Lives at [facility]. Disabled. DIAGNOSTICS/PROCEDURES/CRITICAL CARE TIME: Chest x-ray: Hypoventilated clear lungs. No pneumonia. DIFFERENTIAL DIAGNOSIS: The differential diagnosis for the patient's fever included but was not limited to pneumonia, urinary tract infection, viral syndrome, meningitis, and sepsis. MEDICAL DECISION MAKING: This is a 58 y/o male with end-stage renal disease who arrives via EMS from dialysis and [facility] for lethargy and fever after dialysis. The patient is well known to the emergency department; he is nonverbal. Patient will need to be worked up to rule out sepsis. Labs and chest x-ray ordered. 1357: Patient's chest x-ray does not reveal a pneumonia. Labs still pending. 1417: Patient's lactate is elevated, but this is most likely due to patient's chronic hypoperfusion. Patient does not meet sepsis criteria at this time as he has okay heart rate and pressure; WBC still pending. 1418: Patient has an elevated WBC and a temperature of 39 degrees celsius; due to these findings he rules in for severe sepsis screening. I still cannot find a source for the patient's sepsis. We are forgoing the fluid bolus for severe sepsis as the patient just presented from dialysis. I will page the hospitalist. 1420: Reassessed patient and discussed plan for admission for sepsis. 1440: I consulted with the hospitalist service, Dr. Mancuso accepts admission of this patient. 750mg IV Levaquin administered. - Data Points Laboratory Results: Laboratory Results 02/27/19 13:58 02/27/19 13:58 02/27/19 02/27/19 02/27/19 13:58 13:58 13:58 WBC 19.30 10^3/uL H 10^3/uL (3.80-9.50) RBC 3.74 10^6/uL L 10^6/uL (4.40-6.38) Hgb 11.2 g/dL L g/dL (13.7-17.5) Hct 35.3 % L % (40.0-51.0) MCV 94.4 fL fL (81.5-99.8) MCH 29.9 pg pg (27.9-34.1) MCHC 31.7 g/dL L g/dL (32.4-36.7) RDW 13.6 % % (11.5-15.2) Plt Count 222 10^3/uL 10^3/uL (150-400) MPV 8.9 fL fL (8.7-11.7) Neut % (Auto) 82.7 % H % (39.3-74.2) Lymph % (Auto) 8.0 % L % (15.0-45.0) [place] % (Auto) 7.9 % % (4.5-13.0) Eos % (Auto) 0.0 % L % (0.6-7.6) Baso % (Auto) 0.3 % % (0.3-1.7) Nucleat RBC Rel Count 0.0 % % (0.0-0.2) Absolute Neuts (auto) 15.96 10^3/uL H 10^3/uL (1.70-6.50) Absolute Lymphs (auto) 1.54 10^3/uL 10^3/uL (1.00-3.00) Absolute Monos (auto) 1.52 10^3/uL H 10^3/uL (0.30-0.80) Absolute Eos (auto) 0.00 10^3/uL L 10^3/uL (0.03-0.40) Absolute Basos (auto) 0.06 10^3/uL 10^3/uL (0.02-0.10) Absolute Nucleated RBC 0.00 10^3/uL 10^3/uL (0-0.01) Immature Gran % 1.1 % % (0.0-1.1) Immature Gran # 0.21 10^3/uL H 10^3/uL (0.00-0.10) RBC/WBC/PLT Morphology TNP Platelet Estimate TNP PT 14.8 SEC SEC (12.0-15.0) INR 1.21 H (0.83-1.16) APTT 38.4 SEC H SEC (23.0-38.0) VBG Lactic Acid Sodium 135 mEq/L mEq/L (135-145) Potassium 5.5 mEq/L H mEq/L (3.5-5.2) Chloride 93 mEq/L L mEq/L (97-110) Carbon Dioxide 26 mEq/l mEq/l (22-31) Anion Gap 16 mEq/L H mEq/L (6-14) BUN 60 mg/dL H mg/dL (7-23) Creatinine 6.8 mg/dL H mg/dL (0.7-1.3) Estimated GFR 8 Glucose 219 mg/dL H mg/dL (70-100) Calcium 8.2 mg/dL L mg/dL (8.5-10.4) Total Bilirubin 0.4 mg/dL mg/dL (0.1-1.4) 02/27/19 13:58 WBC RBC Hgb Hct MCV MCH MCHC RDW Plt Count MPV Neut % (Auto) Lymph % (Auto) [place] % (Auto) Eos % (Auto) Baso % (Auto) Nucleat RBC Rel Count Absolute Neuts (auto) Absolute Lymphs (auto) Absolute Monos (auto) Absolute Eos (auto) Absolute Basos (auto) Absolute Nucleated RBC Immature Gran % Immature Gran # RBC/WBC/PLT Morphology Platelet Estimate PT INR APTT VBG Lactic Acid 2.2 mmol/L H mmol/L (0.7-2.1) Sodium Potassium Chloride Carbon Dioxide Anion Gap BUN Creatinine Estimated GFR Glucose Calcium Total Bilirubin Medications Given: Levofloxacin/Dextrose (Levaquin 750 Mg (Premix)) 150 mls @ 100 mls/hr IV EDNOW ONE PRN Reason: Protocol Stop: 02/27/19 16:10 Last Admin: 02/27/19 14:51 Dose: 150 mls Departure - Departure Disposition: [facility] Inpatient Acute Clinical Impression: ESRD (end stage renal disease) on dialysis, Severe sepsis Condition: Fair Report Scribed for: Jim Beverly Report Scribed by: Rajni Garvey Date of Report: 02/27/19 Time of Report: 13:53
[2019-02-27 14:16] LABS: PLATELET COUNT 222 10^3/uL (150-400)
[2019-02-27 14:26] LABS: INR 1.21 (0.83-1.16); PROTIME(PATIENT) 14.8 SEC (12.0-15.0)
[2019-02-27] MEDS ORDERED: ONDANSETRON 4 MG/2 ML VIAL IVP PRN (16:01)
[2019-02-27] MEDS ORDERED: LORazepam 2 MG/ML INJ IVP PRN (16:01)
[2019-02-27] MEDS ORDERED: ONDANSETRON DISINTEGRATING 4 MG TAB PO PRN (16:01)
[2019-02-27] MEDS ORDERED: HYDROmorphONE/DILAUDID 1 MG/ML INJ IVP PRN (16:01)
[2019-02-27] MEDS ORDERED: HYDROCODONE/APAP 5/325 TAB PO PRN (16:01)
[2019-02-27] MEDS ORDERED: oxyCODONE IR 5 MG TAB PO PRN (16:01)
[2019-02-27] MEDS ORDERED: LORazepam 0.5 MG TAB PO PRN (16:01)
[2019-02-27] MEDS ORDERED: PROMETHAZINE HCL 25 MG/ML INJ IVP PRN (16:01)
[2019-02-27] MEDS ORDERED: SENNOSIDES 1 TAB PO PRN (16:04)
[2019-02-27] MEDS ORDERED: hydrALAZINE 25 MG TAB PO PRN (16:04)
[2019-02-27] MEDS ORDERED: D50W 25 GM/50 ML SYR IVP PRN (16:07)
[2019-02-27] MEDS: ATORVASTATIN CALCIUM 40 MG TAB PO SCH (16:57)
[2019-02-27] MEDS: ACETAMINOPHEN 325 MG TAB PO PRN (16:57)
[2019-02-27] MEDS: SEVELAMER HCL 800 MG TAB PO SCH ×2 (17:17→17:29)
[2019-02-27] MEDS: CEFEPIME HCL 1 GM in NS 50 ML IV SCH (17:20)
--- NOTE | 2019-02-27 17:27 | PDGENHP ---
History and Physical - Chief Complaint fever/shaking chills - History of Present Illness 59 yo M with PMH of ESRD, DM2, HTN, prior ICH and dementia who has been completely non verbal for the last 2 months per family, wheelchair bound for slightly longer than that and residing at [facility] presenting from dialysis where he was noted to have fever and shaking chills. Patient is accompanied by his and much history is obtained both by her and his brother Jayson on the phone who is his MDPOA. Brother notes that patient has been more confused for the last several days. When asked how he could tell that his brother was confused given that he does not speak at baseline, Jayson noted that he generally can recognize his family and make eye contact with them, but for the last several days he was not doing that. Brother does not know if he has had any other symptoms such as diarrhea, n/v, cough and unable to obtain that history from or patient either. Apparently he completed half his run of HD today given his rigors and fevers. History Information - Allergies/Home Medication List Allergies/Adverse Reactions: No Known Allergies Allergy (Verified 02/27/19 13:23) Home Medications: Famotidine [Pepcid 20 MG (*)] 20 mg PO DAILY 08/21/17 [Last Taken 02/27/19 08:00 ] Insulin Detemir [Levemir] 6 unit SQ HS 06/12/18 [Last Taken 02/26/19 20:00] Atorvastatin Calcium [Lipitor 40 mg (*)] 40 mg PO DAILY@17 08/05/18 [Last Taken 02/26/19 17:00] Levothyroxine [Synthroid 137 mcg (*)] 137 mcg PO DAILY06 10/10/18 [Last Taken 08:00] Acetaminophen [Tylenol 325mg (*)] 650 mg PO Q4H PRN 11/02/18 [Last Taken Unknown ] Herbals/Supplements -Info Only 1 ea PO DAILY 11/02/18 [Last Taken 02/27/19] Labetalol HCl [Trandate 100 mg (*)] 100 mg PO TID 11/02/18 [Last Taken 02/27/19 08:00] Lisinopril [Zestril 40 mg (*)] 40 mg PO DAILY 12/09/18 [Last Taken 02/27/19 08: 00] Metoclopramide [Reglan 5 mg (*)] 5 mg PO BID 11/02/18 [Last Taken 02/27/19 08:00 ] Ondansetron HCl [Zofran] 4 mg PO Q6H PRN 11/02/18 [Last Taken Unknown] Sennosides [Senna Lax] 8.6 mg PO DAILY PRN 11/02/18 [Last Taken Unknown] Sertraline HCl [Zoloft 25mg (*)] 125 mg PO DAILY 11/02/18 [Last Taken 02/27/19 08:00] Glucagon HCl [Glucagon] 1 mg SQ ONCE PRN 01/05/19 [Last Taken 02/24/19] Insulin Aspart [Novolog Flexpen] 4 unit SQ AC PRN 01/05/19 [Last Taken 02/27/19 12:00] Sevelamer Carbonate [Renvela] 800 mg PO TIDMEAL 01/05/19 [Last Taken 02/27/19 11 :30] hydrALAZINE [Apresoline] 25 mg PO BID PRN 01/05/19 [Last Taken 02/27/19 08:00] LORazepam [Ativan (*)] 0.5 mg PO MOWEFR 02/27/19 [Last Taken 02/27/19 08:00] I have personally reviewed and updated: family history, medical history, social history, surgical history Past Medical History: HTN. DM. ESRD. h/o subdural hematoma. HLD. Anemia. Gangrenous digit - Past Medical History dementia (non verbal/wheelchair bound at baseline), diabetes type 2, ESRD (MWF HD through [facility]), hypertension, hyperlipidemia Additional medical history: osteomyelitis. ICH--non traumatic. hypothyroid - Surgical History Additional surgical history: R IJ tunneled catheter. revascularization of distal LUE. finger amputations. gastrostomy - Family History Positive for: non-pertinent Additional family history: unable to obtain 2/2 clinical condition - Social History Smoking Status: Former smoker Alcohol Use: None Drug Use: None Additional social history: Lives at [facility], brother Jayson is MDPOA Review of Systems Review of Systems: unobtainable due to patients mental status Physical Exam Physical Exam: Temp Pulse Resp BP Pulse Ox 39.3 C H 93 12 151/66 H 90 L 02/27/19 16:26 02/27/19 16:26 02/27/19 16:26 02/27/19 16:26 02/27/19 16:26 O2 (L/minute) 3 Constitutional: chronically ill appearing, uncomfortable Eyes: PERRL, anicteric sclera Ears, Nose, Mouth, Throat: no oral mucosal ulcers, poor dentition Cardiovascular: regular rate and rhythym, no murmur, rub, or gallop, No edema Respiratory: reduced air movement, other (increased wob) Gastrointestinal: normoactive bowel sounds, soft, non-tender abdomen Genitourinary: no bladder tenderness Skin: warm, normal color Musculoskeletal: full muscle strength Neurologic: CN II-XII Intact, No AAOx3 Psychiatric: encephalopathic Lab Data & Imaging Review 02/27/19 13:58 02/27/19 13:58 WBC 19.30 10^3/uL (3.80-9.50) H 02/27/19 13:58 RBC 3.74 10^6/uL (4.40-6.38) L 02/27/19 13:58 Hgb 11.2 g/dL (13.7-17.5) L 02/27/19 13:58 Hct 35.3 % (40.0-51.0) L 02/27/19 13:58 MCV 94.4 fL (81.5-99.8) 02/27/19 13:58 MCH 29.9 pg (27.9-34.1) 02/27/19 13:58 MCHC 31.7 g/dL (32.4-36.7) L 02/27/19 13:58 RDW 13.6 % (11.5-15.2) 02/27/19 13:58 Plt Count 222 10^3/uL (150-400) 02/27/19 13:58 MPV 8.9 fL (8.7-11.7) 02/27/19 13:58 Neut % (Auto) 82.7 % (39.3-74.2) H 02/27/19 13:58 Lymph % (Auto) 8.0 % (15.0-45.0) L 02/27/19 13:58 [place] % (Auto) 7.9 % (4.5-13.0) 02/27/19 13:58 Eos % (Auto) 0.0 % (0.6-7.6) L 02/27/19 13:58 Baso % (Auto) 0.3 % (0.3-1.7) 02/27/19 13:58 Nucleat RBC Rel Count 0.0 % (0.0-0.2) 02/27/19 13:58 Absolute Neuts (auto) 15.96 10^3/uL (1.70-6.50) H 02/27/19 13:58 Absolute Lymphs (auto) 1.54 10^3/uL (1.00-3.00) 02/27/19 13:58 Absolute Monos (auto) 1.52 10^3/uL (0.30-0.80) H 02/27/19 13:58 Absolute Eos (auto) 0.00 10^3/uL (0.03-0.40) L 02/27/19 13:58 Absolute Basos (auto) 0.06 10^3/uL (0.02-0.10) 02/27/19 13:58 Absolute Nucleated RBC 0.00 10^3/uL (0-0.01) 02/27/19 13:58 Immature Gran % 1.1 % (0.0-1.1) 02/27/19 13:58 Immature Gran # 0.21 10^3/uL (0.00-0.10) H 02/27/19 13:58 RBC/WBC/PLT Morphology TNP 02/27/19 13:58 Platelet Estimate TNP 02/27/19 13:58 PT 14.8 SEC (12.0-15.0) 02/27/19 13:58 INR 1.21 (0.83-1.16) H 02/27/19 13:58 APTT 38.4 SEC (23.0-38.0) H 02/27/19 13:58 VBG Lactic Acid 2.2 mmol/L (0.7-2.1) H 02/27/19 13:58 Sodium 135 mEq/L (135-145) 02/27/19 13:58 Potassium 5.5 mEq/L (3.5-5.2) H 02/27/19 13:58 Chloride 93 mEq/L (97-110) L 02/27/19 13:58 Carbon Dioxide 26 mEq/l (22-31) 02/27/19 13:58 Anion Gap 16 mEq/L (6-14) H 02/27/19 13:58 BUN 60 mg/dL (7-23) H 02/27/19 13:58 Creatinine 6.8 mg/dL (0.7-1.3) H 02/27/19 13:58 Estimated GFR 8 02/27/19 13:58 Glucose 219 mg/dL (70-100) H 02/27/19 13:58 POC Glucose 193 mg/dL (70-100) H 02/27/19 17:10 Calcium 8.2 mg/dL (8.5-10.4) L 02/27/19 13:58 Total Bilirubin 0.4 mg/dL (0.1-1.4) 02/27/19 13:58 Conjugated Bilirubin 0.4 mg/dL (0.0-0.5) 02/27/19 13:58 Unconjugated Bilirubin 0.0 mg/dL (0.0-1.1) 02/27/19 13:58 Icterus Index Cancelled 02/27/19 13:58 AST 17 IU/L (17-59) 02/27/19 13:58 ALT 25 IU/L (21-72) 02/27/19 13:58 Alkaline Phosphatase 102 IU/L (38-126) 02/27/19 13:58 Total Protein 6.5 g/dL (6.3-8.2) 02/27/19 13:58 Albumin 3.7 g/dL (3.5-5.0) 02/27/19 13:58 Specimen Hemolysis Cancelled 02/27/19 13:58 Visualized and Interpreted Chest x-ray results: Yes Visualized and Interpreted EKG results: Yes EKG Interpretation: Positive for: LVH, normal sinsus rhythm EKG additional interpertation: repeat pending, reviewed ecg from 01/05/19 Assessment & Plan Assessment: ESRD (end stage renal disease) on dialysis (Acute) Severe sepsis (Acute) 59 yo M with ESRD, DM2, hx of ICH and dementia, non verbal at baseline, presenting with sepsis # sepsis: source unclear at this time, does have increased o2 requirement but no pna on cxr, no e/o skin infection but will need to do more thorough exam when able as patient not very cooperative and difficult to fully assess, UA pending (on HD but does make some urine), blood cultures pending, respiratory pathogen panel and GI pathogen panel if having diarrhea. Started on cefepime for now for broad coverage. Is HD stable currently. # acute hypoxic respiratory failure: as above, requiring 3L to maintain sats in the 90s although no infiltrate appreciated on CXR, PE another consideration but will hold off on CTA given more consistent with infection and that patient is HD dependent so would need to be timed with HD # ESRD: on MWF HD, renal consulted, only completed half of his usual HD today but labs ok and no e/o significant overload # metabolic encephalopathy: difficult to assess given baseline dementia and non verbal but family note that he is generally able to recognize them and interact at least with making eye contact etc, presumably due to acute infection as above # DM2: has been poorly controlled, will continue home regimen with addition of SSI # HTN: continue home medications including lisinopril, labetalol, hydralazine # hypothyroid: continue lt4, will check tsh # dementia: resides in NH, wheelchair bound, non verbal # FC--brother Jayson HECTOR # IP status, will require > 48 hours for eval/mgmt of above Patient new to my care. Old records reviewed and summarized as above. Care plan reviewed with ER doctor, hx obtained from and brother.
[2019-02-27] MEDS: INSULIN LISPRO 100 UNIT/ML SC SCH (18:14)
[2019-02-27] MEDS ORDERED: INSULIN DETEMIR 6 UNIT SQ SCH (21:00)
[2019-02-27] MEDS: HEPARIN 5,000 UNIT/0.5 ML INJ SC SCH (23:21)
[2019-02-27] MEDS: INSULIN GLARGINE 100 UNITS/ML UNIT SC SCH (23:21)
[2019-02-27] MEDS: LABETALOL HCL 100 MG TAB PO SCH ×2 (23:21→23:25)
[2019-02-27] MEDS: METOCLOPRAMIDE 5 MG TAB PO SCH (23:25)
[2019-02-28 04:35] LABS: PLATELET COUNT 219 10^3/uL (150-400)
[2019-02-28] MEDS: HEPARIN 5,000 UNIT/0.5 ML INJ SC SCH ×3 (05:50→23:12)
[2019-02-28] MEDS: LEVOTHYROXINE 137 MCG TAB PO SCH (05:51)
[2019-02-28] MEDS: LABETALOL HCL 100 MG TAB PO SCH ×3 (08:09→23:14)
[2019-02-28] MEDS: SERTRALINE HCL 100 MG TAB PO SCH (08:11)
[2019-02-28] MEDS: SERTRALINE HCL 25 MG TAB PO SCH (08:11)
[2019-02-28] MEDS: SEVELAMER HCL 800 MG TAB PO SCH ×3 (08:12→21:14)
[2019-02-28] MEDS: ASPIRIN 81 MG CHEWABLE TAB PO SCH (08:12)
[2019-02-28] MEDS: ACETAMINOPHEN 325 MG TAB PO PRN ×2 (08:13→17:57)
[2019-02-28] MEDS: CEFEPIME HCL 1 GM in NS 50 ML IV SCH (08:18)
[2019-02-28] MEDS: INSULIN LISPRO 100 UNIT/ML SC SCH ×3 (08:20→21:14)
[2019-02-28] MEDS ORDERED: SERTRALINE HCL 25 MG TAB PO SCH (09:00)
[2019-02-28] MEDS ORDERED: FAMOTIDINE 20 MG TAB PO SCH (09:00)
[2019-02-28] MEDS ORDERED: LISINOPRIL 40 MG TAB PO SCH (09:00)
[2019-02-28] MEDS ORDERED: SODIUM ZIRCONIUM CYCLOSILICATE 10 GM PACKET PO ONE (11:09)
--- NOTE | 2019-02-28 11:15 | SOAPPROG ---
SOAP Progress Note Assessment/Plan: Assessment: 1. ESRD - -On HD MWF at [facility], had treatment cut short yesterday about half, due to rigors -Plan for next HD Saturday though has mild hyperkalemia today, will treat medically and if he is refractory will schedule HD sooner -LUE AVF appears patent 2. Hyperkalemia - -Give SZ-9 10mg x1 now -Give ESRD diet -HD -As this has been a recurrent issue, I will decrease Lisinopril from 40mg daily to 10mg daily to minimize RUI effect and add Amlodipine to help with BP control 3. F/C - -CXR negative, checking for C diff -AVF appears non-infected -On empiric cefepime Plan: 02/28/19 11:12 02/28/19 11:18 Subjective: 58 y/o M w/ ESRD on HD MWF at [facility], dementia, admitted yesterday after 1/2 run on HD due to rigors. Pt unable to provide history to me when interviewed in welsh. Objective: Vital Signs Temp Pulse Resp BP Pulse Ox 37.2 C 76 14 126/71 H 99 02/28/19 10:32 02/28/19 07:56 02/28/19 07:56 02/28/19 10:32 02/28/19 07:56 Microbiology 02/27/19 18:00 Respiratory Panel (PCR) - Final Nasal, Sinus - Swab No Organism Detected By Pcr Laboratory Results 02/28/19 03:36 02/28/19 03:36 02/27/19 02/28/19 03/01/19 05:59 05:59 05:59 Intake Total 220 Output Total 490 Balance -270 PT 14.8 SEC (12.0-15.0) 02/27/19 13:58 INR 1.21 (0.83-1.16) H 02/27/19 13:58 Physical Exam - Physical Exam General Appearance: other (rousable, incoherent) Respiratory: lungs clear, normal breath sounds Cardiac/Chest: regular rate, rhythm Abdomen: non-tender, soft Extremities: other (LUE AVF +B/T, no signs of erythema or purulence), No swelling ICD10 Worksheet Patient Problems: Problems Problem Status Onset ESRD (end stage renal disease) on dialysis Acute Severe sepsis Acute Abdominal pain Acute Altered mental status Acute Altered mental status Acute Chronic kidney disease Acute DM2 (diabetes mellitus, type 2) Acute ESRD on hemodialysis Acute Encephalopathy Acute History of CVA with residual deficit Acute History of diabetes mellitus Acute History of kidney disease Acute History of renal dialysis Acute Hyperkalemia Acute Hypertensive emergency Acute Hypertensive encephalopathy Acute Hypertensive urgency Acute Hypoglycemia Acute Hypothermia Acute Infected hand Acute Nausea & vomiting Acute Pneumonia of right upper lobe due to infectious organism Acute Renal disease Acute Renal failure Acute Sepsis Acute
--- NOTE | 2019-02-28 12:15 | CPEKG ---
Test Reason : OPEN Blood Pressure : / mmHG Vent. Rate : 085 BPM Atrial Rate : 000 BPM P-R Int : 140 ms QRS Dur : 085 ms QT Int : 360 ms P-R-T Axes : -54 056 072 degrees QTc Int : 428 ms Normal sinus rhythm Confirmed by Otis Dove ([id number]) on 02/28/2019 12:15:02 PM Referred By: Shmuel Mancuso Confirmed By:Otis Dove
[2019-02-28] MEDS ORDERED: hydrALAZINE 25 MG TAB PO PRN (13:15)
--- NOTE | 2019-02-28 13:15 | PDMN ---
Medical Necessity Medical necessity: Pt meets IP criteria per MD & MCG M-160; est los >2 mn for eval/tx of severe sepsis w/acute hypoxic respiratory failure (requiring 3L to maintain sats >90%); source unclear; admit for further workup/monitoring, Renal consult & IV abx; hx ESRD on HD, dementia (non-verbal/wc bound); per H&P & order 02/27/19
[2019-02-28] MEDS: METOCLOPRAMIDE 5 MG TAB PO SCH (13:45)
--- NOTE | 2019-02-28 13:49 | HOSPPROG ---
Hospitalist Progress Note Assessment/Plan: 59 yo M with ESRD, DM2, hx of ICH and dementia, non verbal at baseline, presenting with sepsis # severe sepsis 2/2 GAS bacteremia: RLE wound appears to be likely source. AVF does not appear infected. -change to IV Ceftriaxone -ID to consult in am # C diff - had large BM this am (after receiving Lokelma), C diff was ordered on admission during initial workup for sepsis and returned positive, unclear if active infection vs colonization -will give po vanc for now and discuss with ID in am, likely warrants suppressive therapy at minimum # acute hypoxic respiratory failure: 3 LPM # ESRD: on MWF HD, renal consulted, AVF patent without e/o infection -HD tomorrow or sooner if K does not respond to medical tx # Hyperkalemia: K 5.9 this am -Lokelma per renal and decrease lisinopril # metabolic encephalopathy: h/o CVA and acute infection, also has chronic dementia # DM2: basal / bolus insulin # HTN: cont labetalol, hydralazine -Lisinopril dose decreased due to elevated K, amlodipine added # hypothyroid: tsh nl, cont home LT4 # dementia: resides in NH, wheelchair bound, non verbal # RLE wound: wound care # FC--brother Jayson HECTOR # Dispo - cont inpt Patient new to my care. Old records reviewed. Subjective: Pt non-verbal, does not answer my questions. This is apparently his new baseline. He received Lokelma this am and then had a very large BM, which he painted all over the place. RN's are cleaning him up during my evaluation. No fevers overnight. Tmax 39.5 yesterday afternoon. Objective: Vital Signs Temp Pulse Resp BP Pulse Ox 36.0 C 67 14 133/73 H 94 02/28/19 12:31 02/28/19 12:31 02/28/19 12:31 02/28/19 12:31 02/28/19 12:31 Microbiology 02/27/19 18:00 Respiratory Panel (PCR) - Final Nasal, Sinus - Swab No Organism Detected By Pcr Laboratory Results 02/28/19 03:36 02/28/19 03:36 02/27/19 02/28/19 03/01/19 05:59 05:59 05:59 Intake Total 220 Output Total 490 Balance -270 PT 14.8 SEC (12.0-15.0) 02/27/19 13:58 INR 1.21 (0.83-1.16) H 02/27/19 13:58 - Physical Exam Constitutional: no apparent distress Eyes: PERRL Ears, Nose, Mouth, Throat: moist mucous membranes Cardiovascular: regular rate and rhythym Respiratory: no respiratory distress, clear to auscultation Gastrointestinal: normoactive bowel sounds, soft, non-tender abdomen Skin: warm, other (RLE with ~3 cm wound with obvious cracked skin, no significant surrounding erythema) Musculoskeletal: full muscle strength Psychiatric: encephalopathic ICD10 Worksheet Patient Problems: Problems Problem Status Onset ESRD (end stage renal disease) on dialysis Acute Severe sepsis Acute Abdominal pain Acute Altered mental status Acute Altered mental status Acute Chronic kidney disease Acute DM2 (diabetes mellitus, type 2) Acute ESRD on hemodialysis Acute Encephalopathy Acute History of CVA with residual deficit Acute History of diabetes mellitus Acute History of kidney disease Acute History of renal dialysis Acute Hyperkalemia Acute Hypertensive emergency Acute Hypertensive encephalopathy Acute Hypertensive urgency Acute Hypoglycemia Acute Hypothermia Acute Infected hand Acute Nausea & vomiting Acute Pneumonia of right upper lobe due to infectious organism Acute Renal disease Acute Renal failure Acute Sepsis Acute
--- NOTE | 2019-02-28 15:36 | ASMTCMCOM ---
CM Note CM Note Notes: 02/28/2019 Case Management Note Pt admitted for severe sepsis with h/o ICH, endstage renal disease requiring hemodialysis MWF through [facility], Diabetes Mellitus type 2, HTN. Pt is non verbal and wheelchair bound at baseline. Faxed referral to [facility] with updates. Notified [facility] liadontae Stevens of admission. Rodney checking on outcome of palliative referral at last hospital admission and also if pt has any rehab days left for PT/OT services at [facility]. Pt does reside at [facility] in jail care. Case Management d/c poc: return to [facility]. Case Management to follow. Date Signed: 02/28/2019 03:35 PM Electronically Signed By:Ashlie Muhammad RN
[2019-02-28] MEDS: VANCOMYCIN 125 MG/2.5 ML UDL PO SCH ×2 (17:45→23:16)
[2019-02-28] MEDS: ATORVASTATIN CALCIUM 40 MG TAB PO SCH (17:57)
[2019-02-28] MEDS: INSULIN GLARGINE 100 UNITS/ML UNIT SC SCH (23:13)
[2019-03-01] MEDS: METOCLOPRAMIDE 5 MG TAB PO SCH ×3 (01:43→21:06)
[2019-03-01 04:21] LABS: PLATELET COUNT 218 10^3/uL (150-400)
[2019-03-01] MEDS: LEVOTHYROXINE 137 MCG TAB PO SCH (05:33)
[2019-03-01] MEDS: VANCOMYCIN 125 MG/2.5 ML UDL PO SCH ×4 (05:33→21:05)
[2019-03-01] MEDS: HEPARIN 5,000 UNIT/0.5 ML INJ SC SCH ×3 (05:33→21:13)
[2019-03-01] MEDS: ASPIRIN 81 MG CHEWABLE TAB PO SCH (09:55)
[2019-03-01] MEDS: SEVELAMER HCL 800 MG TAB PO SCH ×3 (09:55→18:02)
[2019-03-01] MEDS: LISINOPRIL 10 MG TAB PO SCH (09:55)
[2019-03-01] MEDS: LABETALOL HCL 100 MG TAB PO SCH ×3 (09:56→21:06)
[2019-03-01] MEDS: SERTRALINE HCL 100 MG TAB PO SCH (09:56)
[2019-03-01] MEDS: SERTRALINE HCL 25 MG TAB PO SCH (09:56)
[2019-03-01] MEDS: INSULIN LISPRO 100 UNIT/ML SC SCH ×3 (09:57→19:15)
--- NOTE | 2019-03-01 13:39 | GCON ---
[f rep st] CONSULTATION INFECTIOUS DISEASE CONSULT DATE OF CONSULTATION: 03/01/2019 REFERRING PHYSICIAN: Larisa Rene MD REASON FOR CONSULT: To assist in the management of this unfortunate 59-year- old male with group A strep bacteremia. HISTORY OF PRESENT ILLNESS: Please note that the entire history was obtained from the chart as the patient is completely nonverbal. The patient is a 59-year-old male whose previous medical history is notable for the followin. End-stage renal disease, on hemodialysis Saturday, Saturday, Saturday. 2. Type 2 diabetes mellitus. 3. Hypertension. 4. Previous ICH with dementia. 5. History of osteomyelitis of the left 4th and 5th digits, status post amputation. Regarding his present issues, the patient was brought to [facility] emergency department on February 27 from [facility] as it was noted that he was having fever and shaking chills previously at dialysis. He was started on Cefepime empirically. Chest x-ray was negative for infiltrate. Blood cultures that were obtained upon admission returned positive for group A strep fairly quickly. Antibiotics were changed to ceftriaxone. I am now asked to assist in his management. Also of note, the patient apparently had 1 large bowel movement that was tested empirically for C difficile, which was positive. It was unclear whether not the patient was having antecedent diarrhea. The patient is completely nonverbal with me today, sitting up in a chair. I am unable to obtain review of systems or any history whatsoever. PREVIOUS MEDICAL HISTORY: As outlined above. ALLERGIES: No known drug allergies. 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 He does not smoke or drink. He lives at [facility]. FAMILY HISTORY: Not pertinent. PHYSICAL EXAM: VITAL SIGNS: T current 36.4. T-max equals current 37.9. Of note, the patient was febrile to 39.5 on admission. Heart rate is 102, blood pressure 158/74, 94% on room air. GENERAL: Cachectic, nonverbal gentleman sitting up in chair, does not appear toxic. HEENT: Temporal wasting bilaterally. No scleral icterus. Mucous membranes are moist, but it is difficult for me to assess his oropharynx because he will not open his mouth. NECK: Trachea is midline. No cervical or supraclavicular lymphadenopathy. CARDIOVASCULAR: S1, S2. No rubs, gallops, or murmurs. LUNGS: Clear to auscultation bilaterally. No rales, rhonchi, or wheeze. ABDOMEN: Soft. No organomegaly or tenderness to palpation. EXTREMITIES: Left upper extremity is notable for a fistula with a palpable thrill. He is missing his 4th and 5th digits of the left hand. His left lower extremity is notable for some superficial eschars without evidence of surrounding infection. The right lower extremity pretibial area mid lower extremity is notable for a fairly large eschar with no surrounding erythema. The patient's inner thighs notable for some patches of blanching erythema that overlie an old scar. These were outlined today. There is no muscle belly tenderness. NEUROLOGIC: He is moving all 4 extremities. Otherwise not able to assess. LABORATORY DATA: Microbiologic data: Blood cultures x2 on admission from February 27, source unknown, but the patient does not have an indwelling line. Show group A strep in all bottles. C difficile positive on the stool on February 28. White blood cell count of 10, down from 19 on admission, hematocrit 32, platelet count of 218. BUN and creatinine 93/8.8. Liver function tests within normal limits. RADIOGRAPHIC DATA: Chest x-ray, PA, and lateral on admission February 27, without evidence of pneumonia. IMPRESSION: Unfortunate 59-year-old male with multiple medical issues including end-stage renal disease, diabetes mellitus now admitted with group A strep bacteremia, likely from a skin and soft tissue source. His right lower extremity is notable for a large eschar that appears superficial and will need wound care moving forward. There is no evidence of necrotizing cellulitis or fasciitis at this point in time. He does not have a hemodialysis catheter. His white blood cell count has fallen nicely and he is no longer febrile. PLAN: 1. Continue Ceftriaxone as is. When the patient is discharged, can proceed with Ancef after dialysis days to complete 10 days of treatment. 2. We will ask wound care to opine regarding the eschar on his right lower extremity, the likely source of his present bacteremia. 3. Regarding the positive Clostridium difficile, it is unclear whether or not this represents colonization or infection, but suspect the former. For now, the patient will remain on a 10-day course of vancomycin. Thank you very much for consulting Infectious Diseases. We will continue to follow this patient with you. /[id number]/MODL MTDD
--- NOTE | 2019-03-01 15:34 | HOSPPROG ---
Hospitalist Progress Note Assessment/Plan: 59 yo M with ESRD, DM2, hx of ICH and dementia, non verbal at baseline, presenting with sepsis # severe sepsis 2/2 GAS bacteremia: RLE wound appears to be likely source. AVF does not appear infected. -cont IV Ceftriaxone. At d/c, can change to IV Ancef after dialysis to complete 10 d tx course. Discussed with ID. -repeat BCx's today # C diff - had large BM this am (after receiving Lokelma), C diff was ordered on admission during initial workup for sepsis and returned positive, unclear if active infection vs colonization -cont po vanc x10 d # acute hypoxic respiratory failure: 3 LPM # ESRD: on MWF HD, renal consulted, AVF patent without e/o infection -HD today # Hyperkalemia: K improved yest with medical tx, HD today # metabolic encephalopathy: h/o CVA and acute infection, also has chronic dementia -mentation back to baseline today # DM2: basal / bolus insulin # HTN: cont labetalol, hydralazine -Lisinopril dose decreased due to elevated K, amlodipine added instead # hypothyroid: tsh nl, cont home LT4 # dementia: resides in NH, wheelchair bound, non verbal # RLE wound: wound care # FC--brother Jayson HECTOR # Dispo - cont inpt, likely dc back to SNF in 1-2 days Subjective: Pt resting comfortably, on dialysis. Awakens, is pleasant. No complaints. Afebrile overnight. Has zhou. Objective: Vital Signs Temp Pulse Resp BP Pulse Ox 36.4 C 64 19 158/74 H 94 03/01/19 10:59 03/01/19 10:59 03/01/19 10:59 03/01/19 10:59 03/01/19 10:59 Microbiology 02/28/19 12:10 Gastrointestinal Tract Panel (PCR) - Final Stool Clostridium Difficile Detected Laboratory Results 03/01/19 03:18 03/01/19 03:18 02/28/19 03/01/19 03/02/19 05:59 05:59 05:59 Intake Total 220 800 Output Total 490 180 Balance -270 620 PT 14.8 SEC (12.0-15.0) 02/27/19 13:58 INR 1.21 (0.83-1.16) H 02/27/19 13:58 - Physical Exam Constitutional: no apparent distress, not in pain Ears, Nose, Mouth, Throat: moist mucous membranes Cardiovascular: regular rate and rhythym Respiratory: no respiratory distress, clear to auscultation Gastrointestinal: normoactive bowel sounds, soft, non-tender abdomen Skin: warm Musculoskeletal: full muscle strength, other (RLE wound with eschar, no erythema ) Psychiatric: encephalopathic ICD10 Worksheet Patient Problems: Problems Problem Status Onset ESRD (end stage renal disease) on dialysis Acute Severe sepsis Acute Abdominal pain Acute Altered mental status Acute Altered mental status Acute Chronic kidney disease Acute DM2 (diabetes mellitus, type 2) Acute ESRD on hemodialysis Acute Encephalopathy Acute History of CVA with residual deficit Acute History of diabetes mellitus Acute History of kidney disease Acute History of renal dialysis Acute Hyperkalemia Acute Hypertensive emergency Acute Hypertensive encephalopathy Acute Hypertensive urgency Acute Hypoglycemia Acute Hypothermia Acute Infected hand Acute Nausea & vomiting Acute Pneumonia of right upper lobe due to infectious organism Acute Renal disease Acute Renal failure Acute Sepsis Acute
--- NOTE | 2019-03-01 19:13 | SOAPPROG ---
SOAP Progress Note Assessment/Plan: Assessment: 1. ESRD - -On HD MWF at [facility], had treatment cut short 02/27 about half, due to rigors -HD today, plan for next HD Saturday -LUE AVF appears patent 2. Hyperkalemia - -Improved with SZ-9 10mg x1 yesterday -ESRD diet -HD -As this has been a recurrent issue, I decreased Lisinopril from 40mg daily to 10mg daily to minimize RUI effect and added Amlodipine to help with BP control 3. F/C - -C diff positive, on PO vanco -GAS bacteremia, suspected from LE wounds, on ceftriaxone, plan to later convert to ancef -AVF appears non-infected -ID following Plan: 03/01/19 19:11 Subjective: Seen and examined on HD towards end of treatment, tolerating well, Qb 400. Told me "Estoy cathy" Objective: Vital Signs Temp Pulse Resp BP Pulse Ox 36.3 C 87 13 120/60 93 03/01/19 18:59 03/01/19 18:59 03/01/19 18:59 03/01/19 18:59 03/01/19 18:59 Microbiology 02/28/19 12:10 Gastrointestinal Tract Panel (PCR) - Final Stool Clostridium Difficile Detected Laboratory Results 03/01/19 03:18 03/01/19 03:18 02/28/19 03/01/19 03/02/19 05:59 05:59 05:59 Intake Total 220 800 400 Output Total 490 180 100 Balance -270 620 300 PT 14.8 SEC (12.0-15.0) 02/27/19 13:58 INR 1.21 (0.83-1.16) H 02/27/19 13:58 Physical Exam - Physical Exam General Appearance: no apparent distress Neck: supple Respiratory: normal breath sounds Cardiac/Chest: regular rate, rhythm Abdomen: non-tender, soft Skin: other (eschars on LE) Extremities: No swelling ICD10 Worksheet Patient Problems: Problems Problem Status Onset ESRD (end stage renal disease) on dialysis Acute Severe sepsis Acute Abdominal pain Acute Altered mental status Acute Altered mental status Acute Chronic kidney disease Acute DM2 (diabetes mellitus, type 2) Acute ESRD on hemodialysis Acute Encephalopathy Acute History of CVA with residual deficit Acute History of diabetes mellitus Acute History of kidney disease Acute History of renal dialysis Acute Hyperkalemia Acute Hypertensive emergency Acute Hypertensive encephalopathy Acute Hypertensive urgency Acute Hypoglycemia Acute Hypothermia Acute Infected hand Acute Nausea & vomiting Acute Pneumonia of right upper lobe due to infectious organism Acute Renal disease Acute Renal failure Acute Sepsis Acute
[2019-03-01] MEDS: ATORVASTATIN CALCIUM 40 MG TAB PO SCH (21:07)
[2019-03-01] MEDS: INSULIN GLARGINE 100 UNITS/ML UNIT SC SCH (21:13)
[2019-03-02] MEDS: VANCOMYCIN 125 MG/2.5 ML UDL PO SCH ×4 (05:38→22:00)
[2019-03-02] MEDS: LEVOTHYROXINE 137 MCG TAB PO SCH (05:38)
[2019-03-02] MEDS: HEPARIN 5,000 UNIT/0.5 ML INJ SC SCH ×3 (05:39→22:01)
[2019-03-02] MEDS: INSULIN LISPRO 100 UNIT/ML SC SCH ×3 (08:37→18:00)
--- NOTE | 2019-03-02 09:49 | PCMIDPN ---
Assessment/Plan: Assessment: Group a strep bacteremia from a presumed skin source. Patient is currently being covered on ceftriaxone. He is responding with decreased white blood cell count and improved interaction. No fevers. Plan to continue the ceftriaxone for total of 14 days from blood culture clearance. Repeat cultures from 2018 are still negative. Plan: 1. Continue IV ceftriaxone 2 g daily for total of 14 days from blood culture clearance. 2. Follow fever curve as well as declining white blood cell count. 3. Follow repeat blood cultures from 03/01/2019. Subjective: Patient is sitting up in a chair. He is able to answer questions in short sentences. Appears to have a moderate to severe degree of psychomotor delay. No new complaints. Objective: Ceftriaxone # 3 Vital Signs Temp Pulse Resp BP Pulse Ox 36.9 C 65 16 143/73 H 99 03/02/19 08:00 03/02/19 08:00 03/02/19 08:00 03/02/19 08:00 03/02/19 08:00 Laboratory Results 03/01/19 03:18 03/02/19 03:23 03/01/19 03/02/19 03/03/19 05:59 05:59 05:59 Intake Total 800 750 Output Total 180 100 Balance 620 650 - Physical Exam General Appearance: WD/WN, alert, no apparent distress, other (Severe dementia) Respiratory: lungs clear, normal breath sounds, No respiratory distress Cardiac/Chest: regular rate, rhythm, No tachycardia Skin: normal color, warm/dry, No rash Neuro/Psych: alert ICD10 Worksheet Patient Problems: Problems Problem Status Onset ESRD (end stage renal disease) on dialysis Acute Severe sepsis Acute Abdominal pain Acute Altered mental status Acute Altered mental status Acute Chronic kidney disease Acute DM2 (diabetes mellitus, type 2) Acute ESRD on hemodialysis Acute Encephalopathy Acute History of CVA with residual deficit Acute History of diabetes mellitus Acute History of kidney disease Acute History of renal dialysis Acute Hyperkalemia Acute Hypertensive emergency Acute Hypertensive encephalopathy Acute Hypertensive urgency Acute Hypoglycemia Acute Hypothermia Acute Infected hand Acute Nausea & vomiting Acute Pneumonia of right upper lobe due to infectious organism Acute Renal disease Acute Renal failure Acute Sepsis Acute
[2019-03-02] MEDS: SEVELAMER HCL 800 MG TAB PO SCH ×3 (09:55→18:00)
[2019-03-02] MEDS: METOCLOPRAMIDE 5 MG TAB PO SCH ×2 (09:55→22:00)
[2019-03-02] MEDS: SERTRALINE HCL 100 MG TAB PO SCH (09:55)
[2019-03-02] MEDS: LISINOPRIL 10 MG TAB PO SCH (09:55)
[2019-03-02] MEDS: LABETALOL HCL 100 MG TAB PO SCH ×3 (09:55→22:00)
[2019-03-02] MEDS: ASPIRIN 81 MG CHEWABLE TAB PO SCH (09:55)
[2019-03-02] MEDS: SERTRALINE HCL 25 MG TAB PO SCH (09:55)
--- NOTE | 2019-03-02 14:01 | HOSPPROG ---
Hospitalist Progress Note Assessment/Plan: 59 yo M with ESRD, DM2, hx of ICH and dementia, non verbal at baseline, presenting with sepsis # severe sepsis 2/2 GAS bacteremia: RLE wound appears to be likely source. AVF does not appear infected. Sepsis physiology resolved. -cont IV Ceftriaxone. At d/c, can change to IV Ancef after dialysis to complete 14 d tx course (through 03/15). Discussed with ID. -repeat BCx's yesterday pending # C diff - unclear if acute infection vs colonization -cont po vanc x10 d # acute hypoxic respiratory failure: resolved # ESRD: on MWF HD, renal consulted, AVF patent without e/o infection -HD today # Hyperkalemia: K improved with medical tx, HD today # metabolic encephalopathy: h/o CVA and acute infection, also has chronic dementia -mentation back to baseline today # DM2: basal / bolus insulin # HTN: cont labetalol, hydralazine -Lisinopril dose decreased due to elevated K, amlodipine added instead # hypothyroid: tsh nl, cont home LT4 # dementia: resides in NH, wheelchair bound, non verbal # RLE wound: wound care # FC--brother Jayson HECTOR # Dispo - cont inpt, likely dc back to SNF tomorrow if rpt BCx's remain neg Subjective: Pt up in chair. Denies pain. No complaints. Eating well. HD today. Objective: Vital Signs Temp Pulse Resp BP Pulse Ox 37.1 C 62 14 113/67 97 03/02/19 12:00 03/02/19 13:33 03/02/19 12:00 03/02/19 12:00 03/02/19 12:00 Laboratory Results 03/01/19 03:18 03/02/19 03:23 03/01/19 03/02/19 03/03/19 05:59 05:59 05:59 Intake Total 800 750 560 Output Total 180 100 Balance 620 650 560 PT 14.8 SEC (12.0-15.0) 02/27/19 13:58 INR 1.21 (0.83-1.16) H 02/27/19 13:58 - Physical Exam Constitutional: no apparent distress Eyes: PERRL Ears, Nose, Mouth, Throat: moist mucous membranes Cardiovascular: regular rate and rhythym Respiratory: no respiratory distress, clear to auscultation Gastrointestinal: normoactive bowel sounds, soft, non-tender abdomen Skin: warm, other (RLE wound unchanged) Musculoskeletal: full muscle strength Psychiatric: interacting appropriately ICD10 Worksheet Patient Problems: Problems Problem Status Onset ESRD (end stage renal disease) on dialysis Acute Severe sepsis Acute Abdominal pain Acute Altered mental status Acute Altered mental status Acute Chronic kidney disease Acute DM2 (diabetes mellitus, type 2) Acute ESRD on hemodialysis Acute Encephalopathy Acute History of CVA with residual deficit Acute History of diabetes mellitus Acute History of kidney disease Acute History of renal dialysis Acute Hyperkalemia Acute Hypertensive emergency Acute Hypertensive encephalopathy Acute Hypertensive urgency Acute Hypoglycemia Acute Hypothermia Acute Infected hand Acute Nausea & vomiting Acute Pneumonia of right upper lobe due to infectious organism Acute Renal disease Acute Renal failure Acute Sepsis Acute
--- NOTE | 2019-03-02 14:47 | SOAPPROG ---
SOAP Progress Note Assessment/Plan: Assessment/Plan: 1. ESRD -On HD MWF at [facility], had treatment cut short 02/27 about half, due to rigors -HD today, likely d/c tomorrow if cultures negative -LUE AVF appears patent 2. Hyperkalemia -Improved with SZ-9 10mg x1 on 02/28 -ESRD diet -changed RUI to CCB given recurrent issue 3. F/C - -C diff positive, on PO vanco -GAS bacteremia, suspected from LE wounds, on ceftriaxone, plan to later convert to ancef -AVF appears non-infected -ID following -new cultures pending Will sign off, please contact if ?'s. 03/02/19 14:44 Subjective: Awaiting HD today. Afebrile overnight. Objective: Vital Signs Temp Pulse Resp BP Pulse Ox 37.1 C 62 14 113/67 97 03/02/19 12:00 03/02/19 13:33 03/02/19 12:00 03/02/19 12:00 03/02/19 12:00 Laboratory Results 03/01/19 03:18 03/02/19 03:23 03/01/19 03/02/19 03/03/19 05:59 05:59 05:59 Intake Total 800 750 560 Output Total 180 100 Balance 620 650 560 PT 14.8 SEC (12.0-15.0) 02/27/19 13:58 INR 1.21 (0.83-1.16) H 02/27/19 13:58 Physical Exam - Physical Exam General Appearance: WD/WN, alert EENT: PERRL/EOMI Neck: non-tender, full range of motion, supple Respiratory: chest non-tender, decreased breath sounds Cardiac/Chest: regular rate, rhythm, edema Abdomen: normal bowel sounds, non-tender, soft Skin: pallor Neuro/Psych: depressed affect ICD10 Worksheet Patient Problems: Problems Problem Status Onset ESRD (end stage renal disease) on dialysis Acute Severe sepsis Acute Abdominal pain Acute Altered mental status Acute Altered mental status Acute Chronic kidney disease Acute DM2 (diabetes mellitus, type 2) Acute ESRD on hemodialysis Acute Encephalopathy Acute History of CVA with residual deficit Acute History of diabetes mellitus Acute History of kidney disease Acute History of renal dialysis Acute Hyperkalemia Acute Hypertensive emergency Acute Hypertensive encephalopathy Acute Hypertensive urgency Acute Hypoglycemia Acute Hypothermia Acute Infected hand Acute Nausea & vomiting Acute Pneumonia of right upper lobe due to infectious organism Acute Renal disease Acute Renal failure Acute Sepsis Acute
--- NOTE | 2019-03-02 16:19 | WOCRNPDOC ---
WOCRN Advanced Assessment Note - Skin Integrity Problem, Advanced Assess right lower leg Dressing Type: Open to Air Exudate Amount: None Erich Wound Tissue: Erythema Wound Bed Color: Brown, Yellow Wound Bed Constitution: Unstable Eschar Wound Edges: Irregular Site Measurement - Head-to-Toe Length X Width X Depth (cm): 4x2.5xeschar Skin Integrity Problem Comment: Likely traumatic wound that was left open to air and has stalled in the healing cascade. Moderate erythema erich wound to 4 to 5 cm. Infectious disease group has visualized wound. No venous stasis. Pulses strong and limb is warm. Will initiate moist wound care. Nadia WOCN in room for care. Wound care will follow. Right Lateral Ankle Dressing Type: Open to Air Wound Bed Constitution: Healed Pressure Injury Present on Admit: Yes Skin Integrity Problem Comment: Healed full thickness pressure injury, fully epithelized. Unknown stage. There is also a healed full thinkness pressure injury on the left malleolus. Right Lateral Foot Dressing Type: Open to Air Wound Edges: Thick Site Measurement - Head-to-Toe Length X Width X Depth (cm): 0.5x0.5xeschar Pressure Injury Stage: Unstageable Pressure Injury Present on Admit: Yes Skin Integrity Problem Comment: Round pressure injury covered with eschar overtop a bony prominence in the patient's foot. Will initiate moist wound healing with Silvasorb. Nadia WOCN in room for care. Wound care will follow. Left Dorsal Foot Dressing Type: Open to Air Wound Edges: Thick Site Measurement - Head-to-Toe Length X Width X Depth (cm): 1x1x0.1 Pressure Injury Stage: Stage 3 Pressure Injury Present on Admit: Yes Skin Integrity Problem Comment: Small full thinckness wound to dorsal aspect of patient foot mostly healed. Will initiate moist wound healing with Silvasorb. Nadia WOCN in room for care. Wound care will follow. Right Toe Dressing Type: Open to Air Wound Bed Constitution: Stable Eschar Skin Integrity Problem Comment: Multiple wounds on tops and side of toes 1-4. Dry eschar. No evidence of infection. Foot warm and pulses strong. No wound care needs noted at this time. Left Toe Dressing Type: Open to Air Wound Bed Constitution: Stable Eschar Skin Integrity Problem Comment: Multiple wounds on sides of toes 2-4. Dry eschar. No evidence of infection. Foot warm and pulses strong. No wound care needs noted at this time.
[2019-03-02] MEDS: ATORVASTATIN CALCIUM 40 MG TAB PO SCH (18:00)
[2019-03-02] MEDS: INSULIN GLARGINE 100 UNITS/ML UNIT SC SCH (22:17)
[2019-03-03] MEDS: LEVOTHYROXINE 137 MCG TAB PO SCH ×2 (06:10→07:00)
[2019-03-03] MEDS: VANCOMYCIN 125 MG/2.5 ML UDL PO SCH ×2 (06:10→11:27)
[2019-03-03] MEDS: HEPARIN 5,000 UNIT/0.5 ML INJ SC SCH (06:10)
[2019-03-03] MEDS ORDERED: HYDROCORTISONE 100 MG/2 ML VIAL IVP ONE (07:29)
[2019-03-03] MEDS ORDERED: VASOPRESSIN 25 UNIT in NS 250 ML IV SCH (07:30)
--- NOTE | 2019-03-03 09:08 | PDIAF ---
- Diagnosis Diagnosis: bacteremia Code Status: Full Code - Medication Management Executive Officer Antibiotics: Ancef 2g after dialysis on HD days [facility] Antibiotic Stop Date: 03/11/19 Discharge Medications: electronically signed and located in the Home Medication List. PICC Care - Routine: N/A - Orders Isolation Type: CDIFF Isolation, Contact Isolation Diet Recommendation: other (Renal) Diet Texture: Dysphagia 1 - Pureed, Thin Liquids, Meds Crushed in Puree Additional Instructions: Wound Care orders: Dressing change orders for Right Lower Leg every other day and as needed. 1) cleanse site w/ NS and gauze, 2) apply Honey gel to cover wound bed. 3) Cover with small piece of Telfa. 4) cover w/ Allevyn life. Change dressings to Right outside and Left top of foot every 3 days and as needed. 1. Clean with ns and gauze 2. Silvasorb gel to wound bed 3. Cover with Allevyn Life or other foam border dressing. Chon Lemon RN WCTeam - Follow Up Care Current Providers and Referrals: Patient,NotPresent [Primary Care Provider] - As per Instructions
--- NOTE | 2019-03-03 09:19 | PCMIDPN ---
Assessment/Plan: 1.GAS bacteremia 2/2 skin and soft tissue source: Will change antibiotics to cefazolin 2 g after hemodialysis on hemodialysis days ; stop date March 11, which would be 10 days of therapy. The right lower extremity wound needs to be meticulously cared for moving forward; appreciate wound care assistance and advice. He does not need to follow up with Infectious Diseases, per se. Please call with any additional questions. 2. C difficile disease versus colonization: Has had no further episodes of diarrhea. Continue treatment dose vancomycin for 10-14 days, then back down to twice daily for 7 days, then stop. 03/03/19 09:17 Subjective: Likely going home today. Objective: Ceftriaxone 2 g IV daily, stop date for antibiotics for 17 Vital Signs Temp Pulse Resp BP Pulse Ox 36.1 C 71 16 161/86 H 99 03/03/19 07:45 03/03/19 07:45 03/03/19 07:45 03/03/19 07:45 03/03/19 07:45 Laboratory Results 03/01/19 03:18 03/03/19 03:28 03/02/19 03/03/19 03/04/19 05:59 05:59 05:59 Intake Total 750 860 Output Total 100 Balance 650 860 Repeat blood cultures March 01 no growth - Physical Exam General Appearance: no apparent distress, cachetic, other (Eyes are open, unresponsive otherwise. Getting dialysis.) Respiratory: lungs clear Extremities: other (Right lower extremity tibial eschar unchanged. Erythematous patches right inner thigh have receded inside of margins and are now more brownish in color, and barely visible.) ICD10 Worksheet Patient Problems: Problems Problem Status Onset ESRD (end stage renal disease) on dialysis Acute Severe sepsis Acute Abdominal pain Acute Altered mental status Acute Altered mental status Acute Chronic kidney disease Acute DM2 (diabetes mellitus, type 2) Acute ESRD on hemodialysis Acute Encephalopathy Acute History of CVA with residual deficit Acute History of diabetes mellitus Acute History of kidney disease Acute History of renal dialysis Acute Hyperkalemia Acute Hypertensive emergency Acute Hypertensive encephalopathy Acute Hypertensive urgency Acute Hypoglycemia Acute Hypothermia Acute Infected hand Acute Nausea & vomiting Acute Pneumonia of right upper lobe due to infectious organism Acute Renal disease Acute Renal failure Acute Sepsis Acute
[2019-03-03] MEDS: INSULIN LISPRO 100 UNIT/ML SC SCH ×2 (09:47→12:17)
--- NOTE | 2019-03-03 10:44 | ASMTLACE ---
LACE Length of stay for Answers: 4-6 days current admission Acuity / Level of Answers: Yes Care: Did the patient have an inpatient admission? Comorbidities - select Answers: Dementia all that apply Diabetes (uncontrolled or controlled) Moderate or severe liver or renal disease Other Notes: HTN, piroir ICH, non verbal # of Emergency department Answers: 3-4 visits in the last 6 months Score: 19 Date Signed: 03/03/2019 10:43 AM Electronically Signed By:JOHANN Diane
[2019-03-03] MEDS: SERTRALINE HCL 25 MG TAB PO SCH (11:28)
[2019-03-03] MEDS: SERTRALINE HCL 100 MG TAB PO SCH (11:30)
[2019-03-03] MEDS: LISINOPRIL 10 MG TAB PO SCH (11:30)
[2019-03-03] MEDS: METOCLOPRAMIDE 5 MG TAB PO SCH (11:32)
[2019-03-03] MEDS: SEVELAMER HCL 800 MG TAB PO SCH ×2 (11:33→12:17)
[2019-03-03] MEDS: LABETALOL HCL 100 MG TAB PO SCH (11:39)
[2019-03-03] MEDS: ASPIRIN 81 MG CHEWABLE TAB PO SCH (11:39)
[2019-03-03 12:20] VITALS: BP 118/66
--- NOTE | 2019-03-03 12:54 | ASMTDCNOTE ---
Case Management Discharge Discharge Order Complete? Answers: Yes Patient to Obtain Answers: Other Medications Transportation Arranged Answers: Other Transport will Pick (Date 03/03/2019 02:00 PM & Time) EMTALA Complete Answers: No Case Management Transport Answers: Yes Notes: PCS form completed Form Complete Faxed Final Orders Answers: Yes Agency/Facility Transfer Answers: Yes Report Printed & Faxed to Receiving Agency Family Notified Answers: No Discharge Comments Notes: Pts case discussed w/ Dr. Swanson. Pt is being d/c'd today. Pt will require iv ancef 2gm after HD at [facility]. CM left a msg for [facility] but they are not in the office today. CM faxed over ID d/c orders to [facility]. CM asked Rodney at [facility] to follow up to make sure pt is getting his ivabx after HD. DC orders sent to [facility]. INDRA Tinoco will call to give report. CM available for changes. Plan: [facility] Date Signed: 03/03/2019 12:50 PM Electronically Signed By:JOHANN Diane
--- NOTE | 2019-03-03 12:55 | ASDISCHSUM ---
Discharge Information Plan Status:SNF Medically Cleared to Leave:03/03/2019 Discharge Date:03/03/2019 CM D/C Disposition: ADT D/C Disposition:Residential Facility Projected Discharge Date:03/03/2019 11:00 AM Transportation at D/C: Discharge Delay Reason: Follow-Up Date:03/03/2019 11:00 AM Discharge Slot: Final Diagnosis: Placement Information Referral Type:*Custodial/SNF Referral ID:[id number] Provider Name:Rianna Lopez/[facility] Address 1:[address] Address 2: Fax Number: [facility]:[place] Selection Factors: State:[place] Patient Contact Information Contact Name:ARIES Relationship: Address:[address] City:[place] Alternate Phone: State/Zip Code:[place] [address] Email: Financial Information Financial Class:Medicare Primary Plan Desc:MEDICARE INPATIENT Primary Plan Number:[id number] Secondary Plan Desc:[place] Secondary Plan Number:[id number] Assessment Information LACE LACE Length of stay for Answers: 4-6 days current admission Acuity / Level of Answers: Yes Care: Did the patient have an inpatient admission? Comorbidities - select Answers: Dementia all that apply Diabetes (uncontrolled or controlled) Moderate or severe liver or renal disease Other Notes: HTN, piroir ICH, non verbal # of Emergency department Answers: 3-4 visits in the last 6 months Score: 19 Date Signed: 03/03/2019 10:43 AM Electronically Signed By:JOHANN Diane [facility] CM Progress Note CM Note CM Note Notes: 02/28/2019 Case Management Note Pt admitted for severe sepsis with h/o ICH, endstage renal disease requiring hemodialysis MWF through [facility], Diabetes Mellitus type 2, HTN. Pt is non verbal and wheelchair bound at baseline. Faxed referral to [facility] with updates. Notified [facility] liadontae Stevens of admission. Rodney checking on outcome of palliative referral at last hospital admission and also if pt has any rehab days left for PT/OT services at [facility]. Pt does reside at [facility] in senior care care. Case Management d/c poc: return to [facility]. Case Management to follow. Date Signed: 02/28/2019 03:35 PM Electronically Signed By:Ashlie Muhammad RN Case Management Discharge Plan Note Case Management Discharge Discharge Order Complete? Answers: Yes Patient to Obtain Answers: Other Medications Transportation Arranged Answers: Other Transport will Pick (Date 03/03/2019 02:00 PM & Time) EMTALA Complete Answers: No Case Management Transport Answers: Yes Notes: PCS form completed Form Complete Faxed Final Orders Answers: Yes Agency/Facility Transfer Answers: Yes Report Printed & Faxed to Receiving Agency Family Notified Answers: No Discharge Comments Notes: Pts case discussed w/ Dr. Swanson. Pt is being d/c'd today. Pt will require iv ancef 2gm after HD at [facility]. CM left a msg for [facility] but they are not in the office today. CM faxed over ID d/c orders to [facility]. CM asked Rodney at [facility] to follow up to make sure pt is getting his ivabx after HD. DC orders sent to [facility]. INDRA Tinoco will call to give report. CM available for changes. Plan: [facility] Date Signed: 03/03/2019 12:50 PM Electronically Signed By:JOHANN Diane Intervention Information Intervention Type:*Incorrect Registration Date of Service:02/27/2019 04:49 PM Patient Type:Observation Staff Member:INDRA Amador Courtney Hours: Discipline: Severity: Comment:
--- NOTE | 2019-03-08 15:30 | GDS ---
[f rep st] DISCHARGE SUMMARY DISCHARGE DIAGNOSES: 1. Severe sepsis secondary to group A strep bacteremia. 2. Right lower extremity wound, likely the source of above. 3. Positive Clostridium difficile. Unclear if this is colonization versus acute infection. 4. Acute hypoxemic respiratory failure, resolved. 5. End-stage renal disease, on continued dialysis. 6. Hyperkalemia, improved with medical treatment and dialysis. 7. Metabolic encephalopathy. Mentation is back to baseline. 8. Type 2 diabetes mellitus. 9. Hypertension. 10. Hypothyroidism. 11. Dementia. CONSULTANTS: 1. Dr. Magen Rocha, Nephrology. 2. Dr. Katherine Swanson, Infectious Disease. HISTORY OF DETAILS: Please see history and physical dated February 27, 2019. In brief, the patient is a 59-year-old male with history of end-stage renal disease who resides at a longterm facility. He has had prior strokes resulting in chronic cognitive impairment. In addition, he has diabetes, h ypertension, hyperlipidemia. He was brought to the hospital from his longterm facility with f ever and shaking chills. He met criteria for severe sepsis. He was given IV fluid bolus and started on cefepime and admitted to the hospital for further management. HOSPITAL COURSE: Patient admitted to the cardiac telemetry unit. On arrival, he was febrile to 39.5 with a heart rate in the 90s and a white blood cell count of 19,000, with a lactate of 2.2, and abno rmal creatinine in the setting of end-stage renal disease. He met criteria for severe sepsis and was treated with IV fluids and broad-spectrum antibiotics. His blood cultures grew group A strep in 2/2 bottles. It is thought the source is a right lower extremity wound that had significant cracking in the skin with associated eschar. Wound care was provided for this. Infectious Disease consult was obtained. His antibiotics were tailored to IV cefazolin with a plan that he will discharge to contin treatment course for a total of 14 days through March 15 of IV cefazolin to be given after dialysi s. His fevers resolved. His sepsis physiology also resolved. During his initial workup, a stool PC R was sent. It is noted he did have a C diff infection back in July 2018. It is unclear if thi s positive C diff this time is related to acute infection versus colonization. However, Infectious D iszacharye recommended a 10-day treatment course. So he was given p.o. vancomycin for that reason. He c ontinued to receive dialysis during his hospitalization. In addition, he required some medical thera py for hyperkalemia which improved. He initially had metabolic encephalopathy, likely related to inf ection. His mentation did return to baseline, which is not normal, and he does have a history of chr onic dementia, likely in the setting of previous strokes. In addition, due to his hyperkalemia, his lisinopril dose was decreased and amlodipine was started to avoid further problems with elevated pota ssium. OBJECTIVE ON DISCHARGE: On the date of discharge, he was hemodynamically stable with blood pressure 118/66, heart rate 67, respiratory rate 14, he is 98% on room air. DISPOSITION: Patient is discharged back to his longterm facility in stable condition. DIET: Renal. FOLLOWUP: 1. Primary care. 2. [facility] for ongoing dialysis needs. Wound care orders were also provided. DISCHARGE MEDICATIONS: Please see [employer] for completed outpatient medication list. New medication s on discharge include: Amlodipine 10 mg p.o. daily; vancomycin 125 mg p.o. four times daily to comp lete a total of 10-day treatment course. Changed medications: Lisinopril was decreased from 40 mg daily to 10 mg daily in an effort to avoid elevated potassium. He will continue all other outpatient medications as previously prescribed. In addition, he is prescribed 2 g IV Ancef Saturday, Saturday, Saturday after dialysis through March 15. /[id number]/MODL
== END 2019-03-03 14:13 | DRG 871 ==
LOC: EDUNIT# → OBSVTOIN 14:51 → F2W 16:15
PROVIDERS: ADMIT Internal Medicine; ATTEND Internal Medicine
PROC: 5A1D70Z Performance of Urinary Filtration, Intermittent, Less than 6 Hours Per Day (ICD-10-PCS; principal; 2019-02-27)
DX: A40.0 Sepsis due to streptococcus, group A (principal); R65.20 Severe sepsis without septic shock; J96.21 Acute and chronic respiratory failure with hypoxia; G93.41 Metabolic encephalopathy; S81.802A Unspecified open wound, left lower leg, initial encounter; X58.XXXA Exposure to other specified factors, initial encounter; A04.72 Enterocolitis due to Clostridium difficile, not specified as recurrent; E87.5 Hyperkalemia; E11.22 Type 2 diabetes mellitus with diabetic chronic kidney disease; N18.6 End stage renal disease; I12.0 Hypertensive chronic kidney disease with stage 5 chronic kidney disease or end stage renal disease; F03.90 Unspecified dementia, unspecified severity, without behavioral disturbance, psychotic disturbance, mood disturbance, and anxiety; I69.319 Unspecified symptoms and signs involving cognitive functions following cerebral infarction; Z89.029 Acquired absence of unspecified finger(s); Z87.891 Personal history of nicotine dependence; Z99.3 Dependence on wheelchair
CPT/HCPCS: 92526-GN; 92610-GN; 96365; 97162-GP; 97166-GO; 97530-GO; 97530-GP; 97535-GO; J0692; J0696; J1644; J1815; J1956; J2060

== ENCOUNTER 2019-03-04 11:13 | Inpatient (IN) | payer OTHER, MEDICAID ==
[2019-03-04] MEDS ORDERED: NS 1,000 ML IV ONE (11:25)
[2019-03-04 12:12] LABS: PLATELET COUNT 283 10^3/uL (150-400)
[2019-03-04 12:22] LABS: INR 1.01 (0.83-1.16); PROTIME(PATIENT) 12.9 SEC (12.0-15.0)
[2019-03-04] MEDS ORDERED: D25W 2.5 GM/10 ML SYR IVP ONE (12:41)
[2019-03-04] MEDS ORDERED: D10W 1,000 ML IV SCH (12:45)
[2019-03-04] MEDS ORDERED: D50W 25 GM/50 ML SYR IVP ONE (13:08)
[2019-03-04] MEDS ORDERED: D50W 25 GM/50 ML SYR IVP PRN (13:10)
[2019-03-04] MEDS ORDERED: ACETAMINOPHEN 325 MG TAB PO PRN (14:49)
[2019-03-04] MEDS ORDERED: hydrALAZINE 25 MG TAB PO PRN (14:49)
[2019-03-04] MEDS ORDERED: SENNOSIDES 1 TAB PO PRN (14:49)
--- NOTE | 2019-03-04 15:11 | EDPHY ---
H & P Time Seen by Provider: 03/04/19 11:21 HPI/ROS: Chief complaint. Lethargy HPI. Patient is a 59-year-old male here by EMS from [facility] with complaint of lethargy. He was discharged from the hospital last evening after being admitted on February 27 for fever and sepsis. He has apparently been nonverbal for 2 months. EMS tells me that the blood sugar when they arrived was 50. They treated at however really no change in mentation. The patient is nonverbal and cannot give me any history. No family is here. 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 Dialysis catheter left arm. Social History: , nonsmoker, no alcohol Smoking Status: Former smoker Physical Exam: General Appearance: Alert but nonverbal well-developed male stable vital signs Eyes: Pupils equal and round no pallor or injection. ENT, Mouth: Mucous membranes are moist. Respiratory: There are no retractions, lungs are clear to auscultation. Cardiovascular: Regular rate and rhythm. Gastrointestinal: Abdomen is soft and nontender, no masses, bowel sounds normal. Neurological: Awake and alert, sensory and motor exams grossly normal. Skin: Warm and dry, no rashes. Musculoskeletal: Neck is supple nontender. Extremities symmetrical, full range of motion. Dialysis catheter left arm. Amputation fingers 4th and 5th left hand Psychiatric: Patient is nonverbal, there is no agitation. Constitutional: Initial Vital Signs Temperature (C) 36.7 C 03/04/19 11:13 Heart Rate 67 03/04/19 11:13 Respiratory Rate 16 03/04/19 11:13 Blood Pressure 151/95 H 03/04/19 11:13 O2 Sat (%) 93 03/04/19 11:13 O2 Delivery Mode Room Air Allergies/Adverse Reactions: No Known Allergies Allergy (Verified 03/04/19 11:25) Home Medications: Medication Instructions Recorded Famotidine [Pepcid 20 MG (*)] 20 mg PO DAILY 08/21/17 Insulin Detemir [Levemir] 6 unit SQ HS 06/12/18 Atorvastatin Calcium [Lipitor 40 40 mg PO HS 08/05/18 mg (*)] Levothyroxine [Synthroid 137 mcg 137 mcg PO DAILY06 10/10/18 (*)] Aspirin [Aspirin 81mg (*)] 81 mg PO DAILY tab.chew 10/15/18 Acetaminophen [Tylenol 325mg (*)] 650 mg PO Q4H PRN 11/02/18 Herbals/Supplements -Info Only 1 ea PO DAILY 11/02/18 Labetalol HCl [Trandate 100 mg (*)] 100 mg PO TID 11/02/18 Metoclopramide [Reglan 5 mg (*)] 5 mg PO BID 11/02/18 Ondansetron HCl [Zofran] 4 mg PO Q6H PRN 11/02/18 Sennosides [Senna Lax] 8.6 mg PO DAILY PRN 11/02/18 Sertraline HCl [Zoloft 25mg (*)] 125 mg PO DAILY 11/02/18 Glucagon HCl [Glucagon] 1 mg SQ ONCE PRN 01/05/19 Sevelamer Carbonate [Renvela] 800 mg PO TIDMEAL 01/05/19 hydrALAZINE [Apresoline] 25 mg PO BID PRN 01/05/19 LORazepam [Ativan (*)] 0.5 mg PO MOWEFR 02/27/19 Lisinopril [Zestril 10 mg (*)] 10 mg PO DAILY tab 03/03/19 Vancomycin [Vancomycin Oral Liquid] 125 mg PO QID #54 udl 03/03/19 amLODIPine BESYLATE [Norvasc 10 mg 10 mg PO DAILY tab 03/03/19 (*)] Insulin Aspart [novoLOG] 4 unit SC TIDMEAL 03/04/19 Multivitamins [Multivitamin (*)] 1 each PO DAILY 03/04/19 cefTRIAXone [Rocephin] 2 gm IV MWF vial 03/04/19 Medical Decision Making - Diagnostics EKG Interpretation: EKG is interpreted by me showing normal sinus rhythm with normal interval and axis. QRS is normal there is no significant ST elevation or depression. No arrhythmia. The rate is 63 Imaging Results: Imaging Impressions Chest X-Ray 03/04/19 11:26 Impression: Negative. No pneumonia. Chest x-ray interpreted by me is normal without evidence for pneumonia Procedures: IV normal saline After finding a blood sugar again to be 50 patient is given half amp of D50 W and started on D10 drip ED Course/Re-evaluation: I consulted discussed case with hospitalist who agrees to the admission No family here for discussion Differential Diagnosis: Recent admission for sepsis. No evidence of sepsis today. No evidence for pneumonia. Patient has persistent hypoglycemia likely secondary to diabetes medications. - Data Points Laboratory Results: Laboratory Results 03/04/19 11:50 03/04/19 11:50 03/04/19 03/04/19 03/04/19 11:54 11:50 11:50 WBC 7.01 10^3/uL 10^3/uL (3.80-9.50) RBC 3.92 10^6/uL L 10^6/uL (4.40-6.38) Hgb 11.7 g/dL L g/dL (13.7-17.5) Hct 36.8 % L % (40.0-51.0) MCV 93.9 fL fL (81.5-99.8) MCH 29.8 pg pg (27.9-34.1) MCHC 31.8 g/dL L g/dL (32.4-36.7) RDW 13.9 % % (11.5-15.2) Plt Count 283 10^3/uL 10^3/uL (150-400) MPV 9.1 fL fL (8.7-11.7) Neut % (Auto) 60.8 % % (39.3-74.2) Lymph % (Auto) 23.5 % % (15.0-45.0) [place] % (Auto) 11.7 % % (4.5-13.0) Eos % (Auto) 2.4 % % (0.6-7.6) Baso % (Auto) 0.6 % % (0.3-1.7) Nucleat RBC Rel Count 0.0 % % (0.0-0.2) Absolute Neuts (auto) 4.26 10^3/uL 10^3/uL (1.70-6.50) Absolute Lymphs (auto) 1.65 10^3/uL 10^3/uL (1.00-3.00) Absolute Monos (auto) 0.82 10^3/uL H 10^3/uL (0.30-0.80) Absolute Eos (auto) 0.17 10^3/uL 10^3/uL (0.03-0.40) Absolute Basos (auto) 0.04 10^3/uL 10^3/uL (0.02-0.10) Absolute Nucleated RBC 0.00 10^3/uL 10^3/uL (0-0.01) Immature Gran % 1.0 % % (0.0-1.1) Immature Gran # 0.07 10^3/uL 10^3/uL (0.00-0.10) PT 12.9 SEC SEC (12.0-15.0) INR 1.01 (0.83-1.16) APTT 35.9 SEC SEC (23.0-38.0) VBG Lactic Acid Sodium Potassium Chloride Carbon Dioxide Anion Gap BUN Creatinine Estimated GFR Glucose Calcium Total Bilirubin POC Troponin I 0.00 ng/mL ng/mL (0.00-0.08) 03/04/19 03/04/19 11:50 11:30 WBC RBC Hgb Hct MCV MCH MCHC RDW Plt Count MPV Neut % (Auto) Lymph % (Auto) [place] % (Auto) Eos % (Auto) Baso % (Auto) Nucleat RBC Rel Count Absolute Neuts (auto) Absolute Lymphs (auto) Absolute Monos (auto) Absolute Eos (auto) Absolute Basos (auto) Absolute Nucleated RBC Immature Gran % Immature Gran # PT INR APTT VBG Lactic Acid 1.4 mmol/L mmol/L (0.7-2.1) Sodium 138 mEq/L mEq/L (135-145) Potassium 4.8 mEq/L mEq/L (3.5-5.2) Chloride 97 mEq/L mEq/L (97-110) Carbon Dioxide 28 mEq/l mEq/l (22-31) Anion Gap 13 mEq/L mEq/L (6-14) BUN 41 mg/dL H mg/dL (7-23) Creatinine 5.3 mg/dL H mg/dL (0.7-1.3) Estimated GFR 11 Glucose 50 mg/dL L mg/dL (70-100) Calcium 8.7 mg/dL mg/dL (8.5-10.4) Total Bilirubin 0.4 mg/dL mg/dL (0.1-1.4) POC Troponin I Medications Given: Dextrose (Dextrose 50% Syringe) 12.5 gm IVP PRN PRN PRN Reason: hypoglycemia Stop: 08/31/19 13:09 Last Admin: 03/04/19 13:15 Dose: 12.5 gm Dextrose (D10w) 1,000 mls @ 50 mls/hr IV CONT YANDEL Stop: 08/31/19 12:44 Last Admin: 03/04/19 13:24 Dose: 1,000 mls Discontinued Medications Dextrose (Dextrose 25%) 12.5 gm IVP EDNOW ONE Stop: 03/04/19 12:42 Last Admin: 03/04/19 13:17 Dose: Not Given Sodium Chloride (Ns) 1,000 mls @ 0 mls/hr IV EDNOW ONE; Wide Open PRN Reason: Protocol Stop: 03/04/19 11:26 Last Admin: 03/04/19 12:02 Dose: 1,000 mls Point of Care Test Results: Chemistry 03/04/19 11:54 POC Troponin I 0.00 ng/mL ng/mL (0.00-0.08) Departure - Departure Disposition: [facility] Acute Clinical Impression: Hypoglycemia Condition: Fair
--- NOTE | 2019-03-04 15:21 | CPEKG ---
Test Reason : OPEN Blood Pressure : / mmHG Vent. Rate : 063 BPM Atrial Rate : 063 BPM P-R Int : 160 ms QRS Dur : 074 ms QT Int : 492 ms P-R-T Axes : 032 045 078 degrees QTc Int : 504 ms Sinus rhythm Prolonged QT interval Confirmed by Lubna Souza ([id number]) on 03/04/2019 3:20:35 PM Referred By: LUBNA SOUZA Confirmed By:Lubna Souza
[2019-03-04] MEDS ORDERED: ceFAZolin 2 GM/DEXTROSE 100 ML IV SCH (15:30)
[2019-03-04] MEDS: LABETALOL HCL 100 MG TAB PO SCH ×2 (15:59→23:42)
[2019-03-04] MEDS: VANCOMYCIN 125 MG/2.5 ML UDL PO SCH ×2 (16:00→23:42)
--- NOTE | 2019-03-04 18:13 | PDGENHP ---
History and Physical History and Physical: CC: Sent from group home because of hypoglycemia HISTORY: This patient is diabetic and on insulin at his chronic nursing facility where he lives, and was found to be with decreased alertness today. The sugar was checked and was found to be 50. Paramedics were called he was given some dextrose and transported here. Upon arrival to the ER here he was awake but his sugar was still 50. He was given more glucose. He is being admitted to the hospital because of hypoglycemia and management monitoring for that. The patient's chronic insulin doses include 6 units of Levemir at bedtime and 4 units with each meal. I am unaware of any changes in those medication doses recently. The patient himself is chronically with dementia and poor communication and getting history from him is not possible at this time even though I tried with a corporate executive. He has been admitted here with hypoglycemia spells in the past Notably the patient was just at this hospital and discharged yesterday. At that time he had been admitted for fever and had a group a strep bacteremia and an open wound on his right leg which was the presumed source of the infection. At this time he is not having any fever. His antibiotic included cefazolin 2 g after each dialysis session. His last dose would have been there for 2 days ago. He has not had dialysis yet today. At this time the patient's only complaint to me is that he wants to get out of the bed and it actually takes 4 VATS and a corporate executive to get him back into the bed as he just about fell trying to climb over the rales, and we have had to place him in a roll belt for safety ROS: A comprehensive 10 system review revealed no other significant findings PAST MEDICAL HISTORY: Recent group a strep infection as above End-stage renal disease on chronic dialysis Multiple strokes and dementia leaving the patient with confusion and very poor communication Anxiety disorder Hypertension Diabetes on insulin, suspect type 1 given his very low doses Hyperlipidemia Osteomyelitis Chronic hypoxemic respiratory failure Hypothyroidism FAMILY MEDICAL HISTORY: Diabetes SOCIAL HISTORY: Lives at [facility] tobacco Does have local family who are supportive MEDICATIONS: The patients list has been reconciled by our clinical pharmacist in the EMR. I have reviewed the list and ordered appropriate medicines. PHYSICAL EXAMINATION: Vital Signs: All stable without fever Examination: General: alert, eating a lunch during my visit, very confused, is attempting conversation but he mumbles his speech, does not appear to be able to understand anything that we are saying to him does not follow any commands or respond appropriately no matter what I say even through corporate executive (this is his actual baseline chronically); his fairly agitated and continually trying to climb out of bed over the bed railing despite the fact that we are working hard with a corporate executive to explain to him that it is unsafe for him to get up and he needs to stay in bed. He is unable to describe to us any reason why he is trying to get out of bed despite our repeated asking for an answer to this Overall he has very poor lean muscle mass and significant generalized weakness but nothing focal Skin: warm, dry, good color, no rash HEENT: normal Neck: no mass or jvd Resps: relaxed Lungs: clear breath sounds Heart: regular, no murmur Abdomen: soft, nondistended, nontender, +BS, no mass Upper Extremities: normal Lower Extremities: There is a 1 cm open wound on the anterior lateral right calf with some mild adherent material but not draining anything, nothing necrotic, no abscess and no cellulitis. There is also a tiny open area on the dorsum of the right foot that has a dry scab covering it, no signs of infection or necrosis there. No other signs of diabetic or other foot infection or wound No Bleeding or bruising Neurologic: normal speech/language, normal kennel operator, no focal weakness IV site: looks normal LABORATORY DATA: Initial blood sugar 50, after some dextrose it is measured at 205 and 190, subsequently measured once again after he went off the D10 drip for a couple hours is 174 BUN 41 creatinine 5.3 normal potassium and CO2 Normal bilirubin Baseline anemia otherwise unremarkable CBC Normal coagulation studies RADIOLOGY STUDIES: A chest x-ray was done in the ER I reviewed the images unremarkable for any acute abnormality 12 LEAD EKG: I reviewed tracing done from the ER which shows sinus rhythm normal rate nothing ischemic, there is a prolonged QT interval ASSESSMENT: * Acute hypoglycemia. The cause of this is uncertain other than the fact that we know he is taking his usual diabetic insulin dosing which is low-dose * Recent group a strep bacteremia with wound on his right calf appears stable at this time with ongoing antibiotic and wound care * Recent positive C diff test on stool sample during last admission; unclear if this is real infection or colonization, but it was recommended to treat with oral vancomycin while he is taking antibiotic for the strep infection * Dementia with behavioral issues currently fairly agitated * High fall risk between his dementia and his severe generalized weakness and poor balance * Prolonged QT interval on EKG in a patient who was taking Reglan on a scheduled basis * End-stage renal disease on dialysis Saturday * Chronic mild anemia of renal disease I reviewed the patient's illness and condition and plans today with Dr. Abimael Mo of Nephrology PLANS: * Admission hospital * At the moment will follow his sugars off of any insulin, may need to resume insulin but will tolerate some hyperglycemia until we see that he does not have any further hypoglycemia * Continue his usual dialysis * Continue his cefazolin doses after dialysis through March 11 as previously planned per Infectious Disease * Continue oral vancomycin through March 11 as previous recommendation per Infectious Disease * Wound care for his leg * Will discontinue Reglan at this time with his prolonged QT interval on EKG * At this time we are having to restrain the patient withdrawal bowel and have a sitter in the room due to his agitation and safety issues * Attempt to minimize use of any sedating or other BELT PRESS OPERATOR active medications I have reviewed the patient's case in detail with Dr. Dr. Abimael Mo I have reviewed the patient's past medical records as part of this assessment, including previous hospital admission records
[2019-03-04] MEDS: SEVELAMER HCL 800 MG TAB PO SCH (18:49)
[2019-03-04] MEDS: QUEtiapine FUMARATE 25 MG TAB PO ONE ×2 (18:50→23:43)
[2019-03-04] MEDS ORDERED: FAMOTIDINE 20 MG TAB PO SCH (21:00)
[2019-03-04] MEDS: ATORVASTATIN CALCIUM 40 MG TAB PO SCH (23:42)
[2019-03-04] MEDS: HEPARIN 5,000 UNIT/0.5 ML INJ SC SCH (23:51)
[2019-03-04] MEDS: FAMOTIDINE 20 MG TAB PO SCH (23:52)
[2019-03-05] MEDS: LEVOTHYROXINE 137 MCG TAB PO SCH (06:21)
[2019-03-05] MEDS: VANCOMYCIN 125 MG/2.5 ML UDL PO SCH ×4 (06:21→20:20)
[2019-03-05] MEDS: HEPARIN 5,000 UNIT/0.5 ML INJ SC SCH ×3 (06:21→20:21)
[2019-03-05] MEDS: SEVELAMER HCL 800 MG TAB PO SCH ×3 (09:09→17:34)
[2019-03-05] MEDS: LABETALOL HCL 100 MG TAB PO SCH ×5 (09:10→20:21)
--- NOTE | 2019-03-05 09:46 | HOSPPROG ---
Hospitalist Progress Note Assessment/Plan: Seen by me with hand tacker today DIAGNOSES: * Acute hypoglycemia. The cause of this is uncertain other than the fact that we know he was taking his usual diabetic insulin dosing which is low-dose * Recent group a strep bacteremia with wound on his right calf appears stable at this time with ongoing antibiotic and wound care * Recent positive C diff test on stool sample during last admission; unclear if this is real infection or colonization, but it was recommended to treat with oral vancomycin while he is taking antibiotic for the strep infection * Dementia with behavioral issues currently fairly agitated * High fall risk between his dementia and his severe generalized weakness and poor balance * Prolonged QT interval on EKG in a patient who was taking Reglan on a scheduled basis * End-stage renal disease on dialysis Saturday * Chronic mild anemia of renal disease Since last evening when he had been getting some IV dextrose, his sugars have drifted down off the dextrose to 117 and he did eat last evening. PLANS: * For now will follow off insulin * Dialysis today * IV Ancef after dialysis today and continue post dialysis Ancef through March 11 * Will need to review with nephrology whether we will dialyze him again tomorrow and then discharge him back to his Saturday schedule or what the plan will be * Continue oral vancomycin through March 11 * Wound care * Diabetic diet for the time being * Fall risk precautions SUBJECTIVE: Patient admits to mild nausea and feels sadness and his heart but has no other specific bothersome symptoms at this time OBJECTIVE Vitals reviewed: Stable without fever Exam: alert, at his baseline level of mentation and orientation; is more relaxed and cooperative this morning that he was last night skin warm dry color ok resps not labored lungs clear BSs heart regular abd soft nondistended nontender, bowel sounds present limbs wound on his right calf unchanged since yesterday iv site ok Lab data: Potassium 5.3 Creatinine up to 6.3 Acid-base looks good Glucoses drifted down overnight 117 Objective: Vital Signs Temp Pulse Resp BP Pulse Ox 36.5 C 69 18 157/78 H 94 03/05/19 08:00 03/05/19 08:00 03/05/19 08:00 03/05/19 08:00 03/05/19 08:00 Laboratory Results 03/05/19 04:30 03/04/19 03/05/19 03/06/19 06:59 06:59 06:59 Intake Total 1200 Balance 1200 PT 12.9 SEC (12.0-15.0) 03/04/19 11:50 INR 1.01 (0.83-1.16) 03/04/19 11:50 ICD10 Worksheet Patient Problems: Problems Problem Status Onset Hypoglycemia Acute Abdominal pain Acute Altered mental status Acute Altered mental status Acute Chronic kidney disease Acute DM2 (diabetes mellitus, type 2) Acute ESRD (end stage renal disease) on dialysis Acute ESRD on hemodialysis Acute Encephalopathy Acute History of CVA with residual deficit Acute History of diabetes mellitus Acute History of kidney disease Acute History of renal dialysis Acute Hyperkalemia Acute Hypertensive emergency Acute Hypertensive encephalopathy Acute Hypertensive urgency Acute Hypothermia Acute Infected hand Acute Nausea & vomiting Acute Pneumonia of right upper lobe due to infectious organism Acute Renal disease Acute Renal failure Acute Sepsis Acute Severe sepsis Acute
--- NOTE | 2019-03-05 11:11 | SOAPPROG ---
MARILU Progress Note Assessment/Plan: Assessment/Plan: ESRD: on HD MWF at [facility]. - Will do HD today off-schedule. - Will plan on HD tomorrow to get back on schedule. Hyperkalemia: will modulate with HD. Anemia: Hgb at goal in ESRD, no need for epo. HTN: continue home meds. TRAVIS: pt on phos binder, will check phos with am labs. Subjective: Mr. Russell is a 59 yo M with ESRD on HD MWF at [facility]. Pt was just discharged earlier this week, came back in yesterday for hypoglycemia. His last HD was on Saturday here. Objective: Vital Signs Temp Pulse Resp BP Pulse Ox 36.5 C 69 18 157/78 H 94 03/05/19 08:00 03/05/19 08:00 03/05/19 08:00 03/05/19 08:00 03/05/19 08:00 Laboratory Results 03/05/19 04:30 03/04/19 03/05/19 03/06/19 05:59 05:59 05:59 Intake Total 1200 Balance 1200 PT 12.9 SEC (12.0-15.0) 03/04/19 11:50 INR 1.01 (0.83-1.16) 03/04/19 11:50 General: no acute distress OP: clear CV: RRR Resp: nonlabored respirations Abd: Soft, NT/ND Ext: no edema BLE Access: LUE AVF with thrill and bruit appreciated ICD10 Worksheet Patient Problems: Problems Problem Status Onset Hypoglycemia Acute Abdominal pain Acute Altered mental status Acute Altered mental status Acute Chronic kidney disease Acute DM2 (diabetes mellitus, type 2) Acute ESRD (end stage renal disease) on dialysis Acute ESRD on hemodialysis Acute Encephalopathy Acute History of CVA with residual deficit Acute History of diabetes mellitus Acute History of kidney disease Acute History of renal dialysis Acute Hyperkalemia Acute Hypertensive emergency Acute Hypertensive encephalopathy Acute Hypertensive urgency Acute Hypothermia Acute Infected hand Acute Nausea & vomiting Acute Pneumonia of right upper lobe due to infectious organism Acute Renal disease Acute Renal failure Acute Sepsis Acute Severe sepsis Acute
--- NOTE | 2019-03-05 12:38 | ASMTCMCOM ---
CM Note CM Note Notes: Reviewed chart, pt admitted for Hypoglycemia. He lives at [facility] in LTC and gets dialysis MWF. He is getting dialyzed today and possibly tomorrow. Will return to when medically stable. DC Plan: [facility] Date Signed: 03/05/2019 12:36 PM Electronically Signed By:Mag Tyler RN
--- NOTE | 2019-03-05 14:36 | PDMN ---
Medical Necessity Medical necessity: Pt meets IP criteria per MD & MCG M-134; est los >2 mn for eval/tx of acute hypoglycemia (cause uncertain) w/confusion & agitation; pt high fall risk-requiring roll belt for safety; admit for further monitoring & med management; hx recent hospitalization for group A strep bacteremia w/wound ( dc'd yesterday), recent C diff, ESRD on HD, dementia (non-verbal//wc bound); per H&P & order 03/04/19
[2019-03-05] MEDS ORDERED: ceFAZolin 2 GM/DEXTROSE 100 ML IV ONE (15:00)
--- NOTE | 2019-03-05 16:11 | WOCRNPDOC ---
WOCRN Advanced Assessment Note - Skin Integrity Problem, Advanced Assess Right Lower Leg Dressing Type: Allevyn Life Dressing Description: Clean/Dry, Intact Exudate Color: Yellow, Brown Wound Bed Color: Brown, Red, Yellow Wound Bed Constitution: Granulation Tissue (25%), Mixed Loose & Adhered Slough/ Eschar (25%), Unstable Eschar (50%) Wound Edges: Irregular Site Odor: None Site Measurement - Head-to-Toe Length X Width X Depth (cm): 4x3x0.3 Skin Integrity Problem Comment: Allevyn life dressing removed to reveal a wound of mixed slough and eschar. No evidence of infection erich wound, erythema erich wound seen 3 days ago is gone. Wound cleaned with ns and gauze. Dime sized area of healthy granulation tissue surrounded by yellow slough and brown eschar. Honey applied. One piece of telfa cut to fit and placed over wound bed. All covered with medium sized allevyn life dressing. Answered questions and educated family and patient about moist wound healing though patient mostly sleeping during care. Janae BURRELL and Chemist Instrumentation in room for care. Wound care will follow. Right Lateral Foot Dressing Type: Open to Air Wound Bed Constitution: Stable Eschar Site Measurement - Head-to-Toe Length X Width X Depth (cm): 0.5x0.5xeschar Skin Integrity Problem Comment: Chronic wound stalled in the healing process. Wound cleaned with ns and gauze. Wound bed and edges raised almost detatched feeling from underlying structures. Honey gel applied with a small piece of telfa over top. Covered with Allevyn life. Janae BURRELL and solution maker in room for care. Left Lower Leg Dressing Type: Open to Air Wound Bed Color: Brown, Red Wound Bed Constitution: Granulation Tissue (80%), Unstable Eschar (20%) Site Measurement - Head-to-Toe Length X Width X Depth (cm): 1.6x0.4x0.1/eschar Skin Integrity Problem Comment: Small wound on left lateral talavera with part open wound bed and part eschar covering. No signs of infection. Per patient family this wound looks like the right talavera didat first. Will initiate moist antimicrobial wound healing with Silvasorb and Allevyn dressing. Janae BURRELL and solution maker in room for care. Wound care will follow. Left Dorsal Foot Dressing Type: Open to Air Wound Bed Color: [place], Red Wound Bed Constitution: Granulation Tissue (100%) Site Measurement - Head-to-Toe Length X Width X Depth (cm): 0.5x0.3x0.1 Skin Integrity Problem Comment: Mostly healed wound with tiny center of granulation tissue. Will initiate moist antimicrobial wound healing with Silvasorb gel and Allevyn dressing. Janae BURRELL and solution maker in room for care. Right Toe Dressing Type: Open to Air Wound Bed Constitution: Stable Eschar Skin Integrity Problem Comment: Multiple wounds noted on tops of toes 1-4. Dry eschar. No evidence of infection. Foot warm and pulses strong. No wound care needs noted at this time. Left Toe Dressing Type: Open to Air Wound Bed Constitution: Stable Eschar Skin Integrity Problem Comment: Multiple tiny wounds noted on sides of toes 2- 4. Dry eschar. No evidence of infection at this time. Foot warm with strong pulses. No wound care needs noted at this time.
[2019-03-05] MEDS: LISINOPRIL 10 MG TAB PO SCH (16:26)
[2019-03-05] MEDS: MULTIVITAMINS 1 EACH TAB PO SCH (16:26)
[2019-03-05] MEDS: ASPIRIN 81 MG CHEWABLE TAB PO SCH (16:26)
[2019-03-05] MEDS: SERTRALINE HCL 25 MG TAB PO SCH (16:27)
[2019-03-05] MEDS ORDERED: hydrALAZINE 20 MG/ML VIAL IVP PRN (17:44)
[2019-03-05] MEDS: ATORVASTATIN CALCIUM 40 MG TAB PO SCH (20:21)
[2019-03-05] MEDS: FAMOTIDINE 20 MG TAB PO SCH (20:21)
[2019-03-06] MEDS: HEPARIN 5,000 UNIT/0.5 ML INJ SC SCH ×3 (05:50→20:34)
[2019-03-06] MEDS: VANCOMYCIN 125 MG/2.5 ML UDL PO SCH ×4 (05:50→20:34)
[2019-03-06] MEDS: LEVOTHYROXINE 137 MCG TAB PO SCH (05:51)
--- NOTE | 2019-03-06 07:59 | SOAPPROG ---
SOAP Progress Note Assessment/Plan: Assessment: #ESRD- [facility] MWF -HD as off schedule- run again today to get back on MWF schedule -LUE AVF #DM2 with Hypoglycemia on admit -defer to hospitalist on med adjustment, blood sugars stable overnight #recent strep bacteremia, leg wound and C diff positive -on antibiotics through 03/11 (including oral vanco for C diff) -wound care for LE wounds #anemia CKD -hb at goal #MBD Of CKD -phos at goal, continue sevelamer #dementia I discussed with RN Dr. Morel technology integration specialist for weekend Whitley Jacobsen MD [facility] pager [phone] 03/06/19 08:20 Subjective: Sleeping now but arousable. Didn't want to eat breakfast when nursing offered just now. Wounds dressed yesterday. HD yesterday. BS stable overnight. Objective: Vital Signs Temp Pulse Resp BP Pulse Ox 37.0 C 72 16 109/53 L 93 03/05/19 23:16 03/05/19 23:16 03/05/19 23:16 03/05/19 23:16 03/05/19 23:16 Laboratory Results 03/06/19 04:42 03/05/19 03/06/19 03/07/19 05:59 05:59 05:59 Intake Total 1200 400 Output Total 0 Balance 1200 400 PT 12.9 SEC (12.0-15.0) 03/04/19 11:50 INR 1.01 (0.83-1.16) 03/04/19 11:50 Physical Exam - Physical Exam General Appearance: no apparent distress, other (sleeping but arousable, frail chronically ill) Respiratory: lungs clear (ant bilat) Cardiac/Chest: regular rate, rhythm, other (no rub) Abdomen: normal bowel sounds, non-tender, soft Skin: other (wounds on anterior talavera bilat dressed c/d/i) Extremities: other (no edema, LUE AVF +thrill/bruit, bandage on) Neuro/Psych: other (sleepy but arouses easily) ICD10 Worksheet Patient Problems: Problems Problem Status Onset Hypoglycemia Acute Abdominal pain Acute Altered mental status Acute Altered mental status Acute Chronic kidney disease Acute DM2 (diabetes mellitus, type 2) Acute ESRD (end stage renal disease) on dialysis Acute ESRD on hemodialysis Acute Encephalopathy Acute History of CVA with residual deficit Acute History of diabetes mellitus Acute History of kidney disease Acute History of renal dialysis Acute Hyperkalemia Acute Hypertensive emergency Acute Hypertensive encephalopathy Acute Hypertensive urgency Acute Hypothermia Acute Infected hand Acute Nausea & vomiting Acute Pneumonia of right upper lobe due to infectious organism Acute Renal disease Acute Renal failure Acute Sepsis Acute Severe sepsis Acute
--- NOTE | 2019-03-06 12:56 | ASMTCMCOM ---
CM Note CM Note Notes: Patient to have dialysis at 1600 today. He will d/c back to [facility] tomorrow morning. Rodney at [facility] will set up stretcher transport w [facility]. Case Management will follow. Date Signed: 03/06/2019 12:55 PM Electronically Signed By:Jenni Salomon RN
[2019-03-06] MEDS: LABETALOL HCL 100 MG TAB PO SCH ×3 (13:40→20:32)
[2019-03-06] MEDS: SEVELAMER HCL 800 MG TAB PO SCH ×3 (13:40→20:31)
--- NOTE | 2019-03-06 14:47 | HOSPPROG ---
Hospitalist Progress Note Assessment/Plan: The patient is a 59-year-old male with PMH ESRD on HD, strep bacteremia, diabetes mellitus type 2 who was admitted for hypoglycemia. ASSESSMENT/PLAN: Hypoglycemia, resolved Diabetes mellitus type 2 Recent strep bacteremia Recent leg wound Recent C diff colitis Chronic anemia Prolonged QT interval Dementia -HD today. -Pt doing well off of insulin. Will DC to SNF tomorrow w/ very low, modified sliding scale w/ meals. Suspect poor po intake. -Discussed w/ pharmacist. -Abx post HD to stop 03/11. -Renew M1 hold. -This patient is new to me. Reviewed patient's chart/records for this visit. VTE prophylaxis: Heparin Code Status: Full code Status: Inpatient for > 2 midnight stay. Disposition: Med [facility] [place] discharge anticipated tomorrow ____ SUBJECTIVE: Today the patient feels well. OBJECTIVE: Physical Exam: General: The patient is a thin male who is alert and in no acute distress. HEENT: normocephalic, extraocular movements intact, conjunctivae clear. Mucous membranes moist. Neck: trachea midline, no visible masses. Resp: unlabored. Abd: nondistended. Musculoskeletal: Reduced muscle tone/bulk. Neuro: cranial nerves II - XII grossly intact. Intact gross motor and sensory function. Psych: Flat affect. Skin: No pallor. Labs/Imaging/Other Tests: chest x-ray, one view-no acute cardiopulmonary process. Personally interpreted. EKG-personally interpreted-sinus rhythm, rate 60, QTC 500 Objective: Vital Signs Temp Pulse Resp BP Pulse Ox 36.6 C 70 12 132/76 H 90 L 03/06/19 08:00 03/06/19 08:00 03/06/19 08:00 03/06/19 08:00 03/06/19 08:00 Laboratory Results 03/06/19 04:42 03/05/19 03/06/19 03/07/19 05:59 05:59 05:59 Intake Total 1200 400 Output Total 0 Balance 1200 400 PT 12.9 SEC (12.0-15.0) 03/04/19 11:50 INR 1.01 (0.83-1.16) 03/04/19 11:50 - Time Spent With Patient Time Spent with Patient: greater than 35 minutes Time Spent with Patient: Greater than 35 minutes spent on this patients care, greater than 50% of time spent counseling, educating, and coordinating care regarding the above mentioned plan. ICD10 Worksheet Patient Problems: Problems Problem Status Onset Hypoglycemia Acute Abdominal pain Acute Altered mental status Acute Altered mental status Acute Chronic kidney disease Acute DM2 (diabetes mellitus, type 2) Acute ESRD (end stage renal disease) on dialysis Acute ESRD on hemodialysis Acute Encephalopathy Acute History of CVA with residual deficit Acute History of diabetes mellitus Acute History of kidney disease Acute History of renal dialysis Acute Hyperkalemia Acute Hypertensive emergency Acute Hypertensive encephalopathy Acute Hypertensive urgency Acute Hypothermia Acute Infected hand Acute Nausea & vomiting Acute Pneumonia of right upper lobe due to infectious organism Acute Renal disease Acute Renal failure Acute Sepsis Acute Severe sepsis Acute
[2019-03-06] MEDS ORDERED: ceFAZolin 2 GM/DEXTROSE 100 ML IV SCH (15:30)
[2019-03-06] MEDS: ASPIRIN 81 MG CHEWABLE TAB PO SCH (17:12)
[2019-03-06] MEDS: MULTIVITAMINS 1 EACH TAB PO SCH (17:13)
[2019-03-06] MEDS: SERTRALINE HCL 25 MG TAB PO SCH (17:13)
[2019-03-06] MEDS: LISINOPRIL 10 MG TAB PO SCH (17:13)
[2019-03-06] MEDS: INSULIN LISPRO 100 UNIT/ML SC SCH (20:33)
[2019-03-06] MEDS: ATORVASTATIN CALCIUM 40 MG TAB PO SCH (20:34)
[2019-03-07] MEDS: VANCOMYCIN 125 MG/2.5 ML UDL PO SCH (06:15)
[2019-03-07] MEDS: HEPARIN 5,000 UNIT/0.5 ML INJ SC SCH (06:15)
[2019-03-07] MEDS: LEVOTHYROXINE 137 MCG TAB PO SCH (06:15)
[2019-03-07 08:33] VITALS: BP 129/65
[2019-03-07] MEDS: INSULIN LISPRO 100 UNIT/ML SC SCH (08:54)
[2019-03-07] MEDS: SEVELAMER HCL 800 MG TAB PO SCH (09:22)
--- NOTE | 2019-03-07 10:10 | PDIAF ---
- Diagnosis Diagnosis: Diabetes, Generalized weakness, Chronic debility, ESRD on HD, HTN, Dementia Code Status: Full Code - Medication Management Hearth Feeder Antibiotics: Cefazolin MWF after HD Skilled Nursing Antibiotic Stop Date: 03/11/19 Discharge Medications: electronically signed and located in the Home Medication List. - Orders Services needed: Home Care, Registered Nurse, Certified Milk House Worker, Master Video Games Mechanic, Physical Therapy, Occupational Therapy Home Care Face to Face: I certify that this patient was under my care and that I had the required [id number] encounter meeting the encounter requirements on the discharge day. My findings support the fact that the patient is homebound as defined in Home Care Face to Face Continued: CMS Chapter 7 Medicare Benefits Manual 30.1.1 , The condition of the patient is such that there exists a normal inability to leave home and consequently, leaving home would require a considerable and taxing effort. Isolation Type: CDIFF Isolation, Contact Isolation Diet Recommendation: cardiac -low fat low salt, other (renal diet) Diet Texture: Regular Texture Diet Brown: Not applicable Wound Care Instructions: Wound care: Change dressing to Left dorsal foot and Left lower leg every 2 days and as needed. 1. Clean with normal saline and gauze. 2. Silvasorb gel to wound bed. 3. Cover with small Allevyn Life. Change dressing to Right lateral foot and Right lower leg every 2 days and as needed. 1. Clean with normal saline and gauze. 2. Honey gel to wound bed. 3. Cover with small piece of Telfa. 4. Cover with small Allevyn Life dressing. Chon Lemon RN WCTeam Additional Instructions: Wound care: Change dressing to Left dorsal foot and Left lower leg every 2 days and as needed. 1. Clean with normal saline and gauze 2. Silvasorb gel to wound bed 3. Cover with small Allevyn Life Change dressing to Right lateral foot and Right lower leg every 2 days and as needed. 1. Clean with normal saline and gauze 2. Honey gel to wound bed 3. Cover with small piece of Telfa 4. Cover with small Allevyn Life dressing Chon Lemon RN WCTeam - Follow Up Care Current Providers and Referrals: LUBNA GUPTA [Other] - 3-5 days (To adjust diabetes medicine. )
[2019-03-07] MEDS: LISINOPRIL 10 MG TAB PO SCH (10:18)
[2019-03-07] MEDS: LABETALOL HCL 100 MG TAB PO SCH (10:18)
[2019-03-07] MEDS: ASPIRIN 81 MG CHEWABLE TAB PO SCH (10:18)
[2019-03-07] MEDS: SERTRALINE HCL 25 MG TAB PO SCH (10:19)
[2019-03-07] MEDS: MULTIVITAMINS 1 EACH TAB PO SCH (10:19)
--- NOTE | 2019-03-07 10:22 | ASMTLACE ---
BINGE Length of stay for Answers: 3 days current admission Acuity / Level of Answers: Yes Care: Did the patient have an inpatient admission? Comorbidities - select Answers: Cerebrovascular disease all that apply (CVA, TIA, aneurysms, vasc ular dementia) Diabetes (uncontrolled or controlled) Moderate or severe liver or renal disease Other Notes: HTN # of Emergency department Answers: 5-8 visits in the last 6 months Score: 17 Date Signed: 03/07/2019 10:21 AM Electronically Signed By:Mag Tyler RN
--- NOTE | 2019-03-07 10:41 | ASMTDCNOTE ---
Case Management Discharge Discharge Order Complete? Answers: Yes Patient to Obtain Answers: Other Notes: [facility] Medications Transportation Arranged Answers: [facility] will Pick (Date 03/07/2019 10:30 AM & Time) Case Management Transport Answers: Yes Form Complete Faxed Final Orders Answers: Yes Agency/Facility Transfer Answers: Yes Report Printed & Faxed to Receiving Agency Discharge Comments Notes: D/w MD, final orders faxed. Rodney at [facility] michelle, RN to call report. Date Signed: 03/07/2019 10:23 AM Electronically Signed By:Mag Tyler RN
--- NOTE | 2019-03-07 10:41 | SOAPPROG ---
SOAP Progress Note Assessment/Plan: Assessment/Plan: ESRD: on HD MWF at [facility]. - Next HD due on Saturday per routine. Anemia: Hgb at goal in ESRD, no need for epo. HTN: continue home meds. TRAVIS: continue phos binder. Subjective: No acute events overnight. Pt had HD yesterday, tolerated fine. Objective: Vital Signs Temp Pulse Resp BP Pulse Ox 37.1 C 67 14 129/65 H 94 03/07/19 08:30 03/07/19 08:30 03/07/19 08:30 03/07/19 08:30 03/07/19 08:30 Laboratory Results 03/07/19 05:15 03/06/19 03/07/19 03/08/19 05:59 05:59 05:59 Intake Total 400 600 Output Total 0 Balance 400 600 PT 12.9 SEC (12.0-15.0) 03/04/19 11:50 INR 1.01 (0.83-1.16) 03/04/19 11:50 General: no acute distress OP: Clear CV: RRR Resp: nonlabored respirations Abd: Soft, NT/ND Ext: no edema BLE Access: LUE AVF ICD10 Worksheet Patient Problems: Problems Problem Status Onset Hypoglycemia Acute Abdominal pain Acute Altered mental status Acute Altered mental status Acute Chronic kidney disease Acute DM2 (diabetes mellitus, type 2) Acute ESRD (end stage renal disease) on dialysis Acute ESRD on hemodialysis Acute Encephalopathy Acute History of CVA with residual deficit Acute History of diabetes mellitus Acute History of kidney disease Acute History of renal dialysis Acute Hyperkalemia Acute Hypertensive emergency Acute Hypertensive encephalopathy Acute Hypertensive urgency Acute Hypothermia Acute Infected hand Acute Nausea & vomiting Acute Pneumonia of right upper lobe due to infectious organism Acute Renal disease Acute Renal failure Acute Sepsis Acute Severe sepsis Acute
--- NOTE | 2019-03-08 09:11 | PDDCSUM ---
Discharge Summary Discharge Summary: Date of Admission: 03/04/2019 Date of Discharge: 03/07/2019 Discharge Diagnoses: Hypoglycemia, resolved Diabetes mellitus type 2 Recent strep bacteremia Recent leg wound Recent C diff colitis Chronic anemia Prolonged QT interval Dementia Admission Diagnoses: Acute hypoglycemia Recent group a strep bacteremia with wound of right calf Recent C diff positive test Dementia with behavioral issues High fall risk Generalized weakness Poor balance Prolonged QT interval ESRD on HD MWF Chronic mild anemia of renal disease Consultants: Ssvaejsyura-usxqyeucef-Lz. Hetal Shah Hospital Course: The patient is a 59-year-old male with past medical history of ESRD, strep bacteremia who was sent from his nursing facility for lethargy and hypoglycemia. His blood sugar was found to be 50. Glucose was replaced and patient was admitted to the hospital for additional medication monitoring. His long and short acting insulin was held for couple days and his blood sugars did not become high. Patient was restarted on a low sliding-scale insulin, which he tolerated without any hypoglycemic episodes. He was transferred back to his nursing facility in stable condition. Physical Exam: Gen: awake, in NAD. Responding to basic questions appropriately. Condition: Fair. Discharged to: [facility] Pertinent tests/labs/imaging: Blood sugar on discharge 125. Medications: Please see med rec form. Continue cefazolin 2 g with dialysis until March 11. Special instructions: Wound care: Change dressing to Left dorsal foot and Left lower leg every 2 days and as needed. 1. Clean with normal saline and gauze 2. Silvasorb gel to wound bed 3. Cover with small Allevyn Life Change dressing to Right lateral foot and Right lower leg every 2 days and as needed. 1. Clean with normal saline and gauze 2. Honey gel to wound bed 3. Cover with small piece of Telfa 4. Cover with small Allevyn Life dressing Chon Lemon RN Te Follow up: PCP Dr. Nathan Tran in 3-5 days to adjust diabetes medicine. > 30 minutes of total time was spent on counseling and coordination of care for this patient's discharge.
== END 2019-03-07 10:53 | DRG 638 ==
LOC: EDUNIT# → F3E 14:06
PROVIDERS: ADMIT Internal Medicine; ATTEND Internal Medicine
PROC: 5A1D70Z Performance of Urinary Filtration, Intermittent, Less than 6 Hours Per Day (ICD-10-PCS; principal; 2019-03-05)
DX: E11.649 Type 2 diabetes mellitus with hypoglycemia without coma (principal); I13.2 Hypertensive heart and chronic kidney disease with heart failure and with stage 5 chronic kidney disease, or end stage renal disease; N18.6 End stage renal disease; D63.1 Anemia in chronic kidney disease; I45.81 Long QT syndrome; E86.9 Volume depletion, unspecified; F03.90 Unspecified dementia, unspecified severity, without behavioral disturbance, psychotic disturbance, mood disturbance, and anxiety; E78.5 Hyperlipidemia, unspecified; E03.9 Hypothyroidism, unspecified; Z99.2 Dependence on renal dialysis; Z87.891 Personal history of nicotine dependence
CPT/HCPCS: 84484-ER; 96374; J0690; J1644

== ENCOUNTER 2019-03-25 01:02 | Observation (INO) | payer OTHER, MEDICAID ==
[2019-03-25] MEDS ORDERED: ONDANSETRON DISINTEGRATING 4 MG TAB PO PRN ×2 (05:03→13:15)
[2019-03-25] MEDS ORDERED: ACETAMINOPHEN 325 MG TAB PO PRN (05:03)
[2019-03-25] MEDS ORDERED: ONDANSETRON 4 MG/2 ML VIAL IVP PRN (05:03)
[2019-03-25] MEDS ORDERED: HYDROmorphONE/DILAUDID 1 MG/ML INJ IVP PRN (05:03)
[2019-03-25] MEDS ORDERED: SENNOSIDES 1 TAB PO PRN (13:04)
[2019-03-25] MEDS ORDERED: D50W 25 GM/50 ML SYR IVP PRN (13:11)
[2019-03-25] MEDS: LISINOPRIL 10 MG TAB PO SCH (16:23)
[2019-03-25] MEDS: LEVOTHYROXINE 137 MCG TAB PO SCH (16:23)
[2019-03-25] MEDS: amLODIPine BESYLATE 5 MG TAB PO SCH (16:23)
[2019-03-25] MEDS: hydrALAZINE 25 MG TAB PO SCH (16:25)
[2019-03-25] MEDS: FAMOTIDINE 20 MG TAB PO SCH (16:25)
[2019-03-25] MEDS: ASPIRIN 81 MG CHEWABLE TAB PO SCH (16:25)
[2019-03-25] MEDS: MULTIVITAMINS 1 EACH TAB PO SCH (16:25)
[2019-03-25] MEDS: SERTRALINE HCL 25 MG TAB PO SCH (16:25)
[2019-03-25] MEDS: METOCLOPRAMIDE 5 MG TAB PO SCH (18:19)
[2019-03-25] MEDS: SEVELAMER HCL 800 MG TAB PO SCH (18:19)
[2019-03-25] MEDS: LABETALOL HCL 100 MG TAB PO SCH (18:19)
[2019-03-25] MEDS: INSULIN LISPRO 100 UNIT/ML SC SCH (18:19)
[2019-03-25] MEDS ORDERED: INSULIN GLARGINE 100 UNITS/ML UNIT SC SCH (21:00)
[2019-03-25] MEDS ORDERED: ATORVASTATIN CALCIUM 40 MG TAB PO SCH (21:00)
[2019-03-25] MEDS ORDERED: NS 1,000 ML IV PRN (22:16)
[2019-03-25] MEDS ORDERED: MELATONIN 3 MG TAB PO SCH (22:30)
[2019-03-25] MEDS ORDERED: ALBUMIN 25% 50 ML IV PRN (22:30)
[2019-03-26] MEDS: hydrALAZINE 25 MG TAB PO SCH ×2 (01:10→09:01)
[2019-03-26] MEDS: INSULIN LISPRO 100 UNIT/ML SC SCH ×2 (08:08→14:14)
[2019-03-26] MEDS: LISINOPRIL 10 MG TAB PO SCH (09:01)
[2019-03-26] MEDS: amLODIPine BESYLATE 5 MG TAB PO SCH (09:02)
[2019-03-26] MEDS: FAMOTIDINE 20 MG TAB PO SCH (09:02)
[2019-03-26] MEDS: METOCLOPRAMIDE 5 MG TAB PO SCH (09:02)
[2019-03-26] MEDS: LEVOTHYROXINE 137 MCG TAB PO SCH (09:02)
[2019-03-26] MEDS: ASPIRIN 81 MG CHEWABLE TAB PO SCH (09:02)
[2019-03-26] MEDS: LABETALOL HCL 100 MG TAB PO SCH ×2 (09:03→14:14)
[2019-03-26] MEDS: MULTIVITAMINS 1 EACH TAB PO SCH (09:03)
[2019-03-26] MEDS: SERTRALINE HCL 25 MG TAB PO SCH (09:03)
[2019-03-26] MEDS: SEVELAMER HCL 800 MG TAB PO SCH ×2 (09:04→14:14)
[2019-03-26] MEDS ORDERED: hydrALAZINE 25 MG TAB PO PRN (13:50)
== END 2019-03-26 15:24 ==
DX: R07.9 Chest pain, unspecified (principal); F03.90 Unspecified dementia, unspecified severity, without behavioral disturbance, psychotic disturbance, mood disturbance, and anxiety; N18.6 End stage renal disease; I12.0 Hypertensive chronic kidney disease with stage 5 chronic kidney disease or end stage renal disease; E11.22 Type 2 diabetes mellitus with diabetic chronic kidney disease; E03.9 Hypothyroidism, unspecified; Z86.73 Personal history of transient ischemic attack (TIA), and cerebral infarction without residual deficits; D63.1 Anemia in chronic kidney disease; F41.9 Anxiety disorder, unspecified; E78.5 Hyperlipidemia, unspecified; Z66 Do not resuscitate; Z79.2 Long term (current) use of antibiotics
CPT/HCPCS: 71045; 93005; 96372; 99285; G0378; J1815

== ENCOUNTER 2019-04-17 21:45 | Inpatient (IN) | payer OTHER, MEDICAID | END 2019-04-25 19:15 | LOC: F1N 23:52 ==

== ENCOUNTER 2019-05-11 08:45 | Inpatient (IN) | payer OTHER, MEDICAID | END 2019-05-13 15:41 | LOC: F2N 13:40 → F3E 20:30 ==